=== PATIENT | male | born 1955 | race Two or more races ===

== ENCOUNTER 2024-12-12 02:38 | Observation (INO) | payer MEDICARE, MEDICAID, SELFPAY ==
[2024-12-12] VITALS (13 sets, daily range): BP systolic 116–196; BP diastolic 59–99; PULSE 66–95; RESP 12–95; TEMP 36.8–39.4; O2SAT 87–98
--- NOTE | 2024-12-12 02:41 | XR_ITS ---
Examination: CT cervical spine without contrast 2-D sagittal reconstructions 2-D coronal reconstructions 3-D reconstructions. Exam date and time:2024 1537 hours Patient with injury to the neck, neck pain CTDI:vol (mGy) 17 DLP: (mGycm) 370 Technique: Multiple 2 mm axial sections of the cervical spine have been obtained. The coronal and sagittal reconstructions have been obtained. 3-D reconstructions have been obtained. Low dose protocols were performed. One or more of the following dose reduction techniques were used; automated exposure control, adjustment of the mA and/or KV according to patient size, use of iterative reconstruction technique. Findings: Axial sections demonstrate intact base of the skull. C1 exhibit satisfactory relationship to the odontoid. No acute cervical vertebral body fracture seen. Alignment posterior spinous processes satisfactory. Impression: No acute cervical fracture.
--- NOTE | 2024-12-12 02:41 | XR_ITS ---
Examination: CT brain head without contrast. 2-D sagittal coronal reconstructions Date and time of exam:December 12, 2024 at 0337 hours Comparison May 04, 2009 INDICATIONS: Patient fell and struck the left side of his head 2 days ago had pain CTDI: vol (mGy):60.9 DLP: (mGycm):1170 Technique: Multiple CT axial sections of the brain have been obtained, 5 mm slice thickness. Contrast has not been administered. 2-D sagittal, coronal reconstructions have been obtained Low dose protocols were performed. One or more of the following dose reduction techniques were used; automated exposure control, adjustment of the mA and/or KV according to patient size, use of iterative reconstruction technique. Findings: Posterior parietal craniotomy defect again noted Ventricles are not enlarged No interval hemorrhage or mass effect Tiny old infarcts right and left cerebellar hemispheres No cranial vault fracture. Impression : No interval hemorrhage or mass effect
--- NOTE | 2024-12-12 02:42 | EKG_ITS ---
[facility] Test Date: 2024-12-12 Pat Name: SARATH MORRIS Department: Room: - Gender: Male [employer] Dis[employer]: : 1955 Requested By: Blaine Faye Order Number: [id number] Reading MD: Blaine Faye Measurements Intervals [place] Rate: 89 P: 43 NM: 162 QRS: 139 QRSD: 146 T: 23 QT: 380 QTc: 464 Interpretive Statements SINUS RHYTHM WITH FREQUENT SUPRAVENTRICULAR PREMATURE COMPLEXES RIGHT AXIS DEVIATION [QRS AXIS > 100] RIGHT BUNDLE BRANCH BLOCK [120+ ms QRS DURATION, UPRIGHT V1, 40+ ms S IN I/aVL/V4/V5/V6] Compared to ECG 09/28/2023 07:58:35 Right-axis deviation now present Right bundle-branch block now present /store/S0/[id number]/ecg/[id number].pdf
--- NOTE | 2024-12-12 02:51 | PD.EDFALL ---
ED Fall Injury RME/HPI General Chief Complaint: Fall Stated Complaint: SYNCOPAL EPISODE Time Seen by Provider: 12/12/24 02:41 Arrival date/time: 12/12/24 02:38 RME / HPI RME / HPI Narrative: Dr. Jesus?s Main ED Evaluation: 69yo male with a history of CVA, HTN, PVD BIBA from home presents to the ED for a chief complaint of a fall. Patient states he got up to use the restroom when his legs felt weak and he fell, hitting face first on the floor. Patient denies LOC, but family reported on scene the patient did lose consciousness. Patient denies any chest pain, abdominal pain, extremity pain, headache, neck pain or any other associated symptoms. Denies recent cough, fever, chills, N/V. No known allergies. Related Data Home Medications ?Medication ?Instructions ?Recorded ?Confirmed benazepril 40 mg tablet 40 mg PO DAILY 05/02/23 05/02/23 carvedilol 12.5 mg tablet 12.5 mg PO BID 05/02/23 05/02/23 furosemide 20 mg tablet 20 mg PO DAILY 05/02/23 05/02/23 tamsulosin 0.4 mg capsule 0.4 mg PO DAILY 05/02/23 05/02/23 trazodone 50 mg tablet 50 mg PO HS PRN Sleep 05/02/23 05/02/23 Previous Rx's ?Medication ?Instructions ?Recorded pantoprazole 40 mg tablet,delayed 40 mg PO QDAY #30 tabs 05/04/23 release (Protonix) Allergies Allergy/AdvReac Type Severity Reaction Status Date / Time No Known Allergies Allergy Unknown Unverified 09/28/23 06:58 Review of Systems Review of Systems Systems Reviewed: All systems reviewed, normal except as documented Past Medical History Past Medical History NEUROLOGIC: Positive Transient Ischemic Attacks (TIA) (had a blank stare- resolved); Negative Seizures CARDIAC: Positive Cardiac Disorders, Peripheral Vascular Disease, Edema (legs) and Hypertension; Negative Congestive Heart Failure RESPIRATORY: Negative Chronic Obstructive Pulmonary Disease (COPD) or Asthma GASTROINTESTINAL: Negative Gastrointestinal Disorders, Gastrointestinal Bleed or Ulcer GENITOURINARY: Positive Genitourinary Disorders (prostate problem); Negative Renal Disease ENDOCRINE: Negative Diabetes Mellitus Type 1 or Diabetes Mellitus Type 2 HEMATOLOGIC: Negative Sickle Cell Disease OTHER HISTORY: Negative Falls, Blood Transfusions, Blood Transfusion Reaction or Anesthesia Reactions Social History SMOKING STATUS: Never smoker SECOND HAND EXPOSURE: No SUBSTANCE USE: does not use ED Exam Narrative Physical exam: GENERAL APPEARANCE: alert and oriented x 4, well-developed, well-nourished, no acute distress VITALS: All vitals were reviewed and the pulse ox is % on room air, which is normal according to my interpretation. HEENT: Normocephalic, atraumatic; scar to the crown of the scalp; pupils equal, round, reactive to light; EOMI; mucous membranes pink, moist; oropharynx clear; no valladares sign; no raccoon eyes NECK: Supple LUNGS: CTABL; no wheezes, no rales, no rhonchi HEART: Regular rate, regular rhythm; normal S1, S2; no murmurs ABDOMEN: non distended; normal BS; soft, no tenderness, no guarding, no rebound; no masses, no organomegaly, no hernia BACK: no CVA tenderness EXTREMITIES: atraumatic; no edema; congenitally shortened fingers NEUROLOGIC: awake; alert and oriented x4; cranial nerves II-XII grossly intact; no focal sensory or motor deficits PSYCHIATRIC: appropriate mood and affect SKIN: warm, dry, normal color; large kelloid to just above the middle of the upper sternum, deep abrasion to the left side of the face over the maxilla and zygoma, no rashes Course Course Course Narrative: C-collar placed. CXR is ordered for determining the etiology of fever. 0259: Sepsis alert initiated. Orders made at this time are congruent with ED Adult Sepsis Order List. Re-evaluation is to be completed. 0438: NS IVF infused. 0508: Sepsis reassessment performed consisting of lab review, vitals, physical exam including auscultation of heart, lungs, and visual evaluation of capillary refills, mucosal membranes and extremities. Quality Measures Possible source: unknown Blood cultures ordered: yes Antibiotic ordered: Yes Pertinent labs: 12/12/24 02:53 Lactic Acid 2.8 H mMol/L (0.4-2.0) Procalcitonin 0.32 ng/ml (0.0-0.49) sepsis Orders Category Date Time Status Bedside COVID-19 Antigen Test NOW Care 12/12/24 02:58 Active Bedside Influenza A&B Antigen Test NOW Care 12/12/24 02:[address] Screening NOW Care 12/12/24 04:40 Active [employer] STAT Care 12/12/24 02:42 Active EKG (ED ONLY) *Do not use* NOW Care 12/12/24 02:42 Completed In and Out Catheter X1 Care 12/12/24 02:42 Active Insert IV NOW Care 12/12/24 02:56 Active Insert IV STAT Care 12/12/24 02:42 Active NPO STAT Care 12/12/24 02:56 Active Orthostatic Vitals STAT Care 12/12/24 02:42 Active Strict Intake and Output Routine Care 12/12/24 02:[address] angio chest Stat Exams 12/12/24 04:[address] cervical spine wo con Stat Exams 12/12/24 02:[address] facial bones wo con Stat Exams 12/12/24 02:[address] head/brain wo con Stat Exams 12/12/24 02:41 Taken EKG (ED Only) Stat Exams 12/12/24 02:42 Draft XR chest 1V portable Stat Exams 12/12/24 02:54 Taken B-Type Natriuretic Peptide Stat Lab 12/12/24 02:53 Completed Blood Culture (Lab) Stat Lab 12/12/24 02:53 Received CBC Stat Lab 12/12/24 02:53 Completed Comprehensive Metabolic Panel Stat Lab 12/12/24 02:53 Completed LDH (Lactate Dehydrogenase) Stat Lab 12/12/24 02:53 Completed Lactate (Lactic Acid) Stat Lab 12/12/24 02:53 Results Lipase Stat Lab 12/12/24 02:53 Completed Magnesium Stat Lab 12/12/24 02:53 Completed Partial Thromboplastin Time Stat Lab 12/12/24 02:53 Completed Phosphorous Stat Lab 12/12/24 02:53 Completed Procalcitonin Stat Lab 12/12/24 02:53 Completed Prothrombin Time with INR Stat Lab 12/12/24 02:53 Completed Troponin I Stat Lab 12/12/24 02:53 Completed Urinalysis Stat Lab 12/12/24 04:40 Completed Urine Culture Stat Lab 12/12/24 04:40 Received Acetaminophen Ivpb [Ofirmev Inj] Med 12/12/24 04:38 Discontinued 1,000 mg in 100 ml IV X1 Doxycycline Inj [Vibramycin Inj] 100 mg Med 12/12/24 03:30 Discontinued Sodium Chloride 0.9% (Pop) [NS 0.9% mini bag] 100 ml IV X1 Piper/Tazo Inj [Zosyn Inj] 4.5 gm Med 12/12/24 02:58 Discontinued Sodium Chloride 0.9% (Pop) [NS 0.9% mini bag] 100 ml IV X1 Sodium Chloride 0.9% 1000 ml [Ns] 1,000 ml Med 12/12/24 02:58 Discontinued IV 999 mls/hr Oxygen Delivery NOW RT 12/12/24 02:56 Active Vital Signs Vital signs: Vital Signs Temperature 102.9 F H 12/12/24 02:56 Pulse Rate 95 12/12/24 02:56 Respiratory Rate 18 12/12/24 02:56 Blood Pressure 170/99 H 12/12/24 02:56 Pulse Oximetry (%) 96 12/12/24 02:56 Oxygen Delivery Method Room Air 12/12/24 02:56 Fall MDM Narrative MDM Narrative:: Scribe Attestation: 12/12/24 - Aniya Ferguson am scribing for and in the presence of Dr. Jesus. Patient data External records reviewed:: [facility] previous records (Per chart review, patient was seen here on 09/28/23 for atypical chest pain.) Clinical information provided by:: patient and EMS Social determinants that could affect healthcare access:: none Patient has the following chronic illnesses:: CVA, HTN, PVD How is presenting disease/condition affected by chronic disease/condition?: uneffected by Evaluation data The following diagnostics were reviewed and interpreted by me:: lab results, radiology exam(s) and EKG tracing(s) Lab and/or radiology exams considered but not ordered:: none Interpretation Summary: CBC is normal, PT and INR are normal, Creatinine is 1.7, Lactic Acid is elevated at 2.8, troponin is normal, Procalcitonin is normal, according to my interpretation. CXR is rotated, but shows a right perihilar infiltrate and widened mediastinum, according to my interpretation. EKG done at 0306, NSR, rate of 89, right axis deviation, RBBB, frequent PACs, QTc: 427, QRS, 146, no STEMI, according to my interpretation. Medications / Prescriptions Medications or Prescriptions considered but not ordered:: none Medication administrations:: Medication Administration History Discontinued Medications Piperacillin Sod/Tazobactam (Sod 4.5 gm/ Sodium Chloride) 100 mls @ 200 mls/hr IV X1 ONE Stop: 12/12/24 03:27 Last Infusion: 12/12/24 05:00 Dose: Infused Documented By: Admin: 12/12/24 04:19 Dose: 200 mls/hr Documented By: DUSTIN Doxycycline Hyclate 100 mg/ (Sodium Chloride) 100 mls @ 100 mls/hr IV X1 ONE Stop: 12/12/24 04:29 Last Admin: 12/12/24 05:39 Dose: 100 mls/hr Documented By: ARIANNA Sodium Chloride (Ns) 1,000 mls @ 999 mls/hr IV .Q1H1M ONE Stop: 12/12/24 03:58 Last Infusion: 12/12/24 04:38 Dose: Infused Documented By: Admin: 12/12/24 03:23 Dose: 999 mls/hr Documented By: DUSTIN Acetaminophen (Ofirmev Inj) 1,000 mg in 100 mls @ 250 mls/hr IV X1 ONE Stop: 12/12/24 05:01 Last Infusion: 12/12/24 05:39 Dose: Infused Documented By: Admin: 12/12/24 05:09 Dose: 250 mls/hr Documented By: ARIANNA see above Consultations Consultation(s) initiated? (list below): No Diagnosis Fall Differential Diagnosis: other (ICH, c-spine fx, facial fx, syncope, TIA, AR, sepsis, septic shock) Most likely diagnosis given after review of the tests above:: see clinical impression below Admission Indicated Admission indicated?: not indicated Admission Request Was there a request for admission?: No Disposition Plan Disposition Plan: other (specify) (Signed out to Dr. Taylor at [address] angio chest.) Discharge Plan Prescriptions/Referrals Prescriptions/Med Rec: No Action furosemide 20 mg tablet 20 mg PO DAILY benazepril 40 mg tablet 40 mg PO DAILY trazodone 50 mg tablet 50 mg PO HS PRN (Reason: Sleep) carvedilol 12.5 mg tablet 12.5 mg PO BID Rx Instructions: with food tamsulosin 0.4 mg capsule 0.4 mg PO DAILY pantoprazole [Protonix] 40 mg tablet,delayed release (DR/EC) 40 mg PO QDAY Qty: 30 3RF Referrals: Ranjan Wolfe MD [Primary Care Provider] - In 1 week Problem List Clinical Impression: Acute renal failure, Severe sepsis Patient/Caregiver Discharge Instructions Print Language: Greek
--- NOTE | 2024-12-12 02:53 | XR_ITS ---
Examination: CT maxillofacial, without intravenous contrast. 2-D sagittal reconstructions. 3-D reconstructions. Date and time of exam:December 12, 2024 0337 hours INDICATIONS: Patient fell 2 days ago with injury to the face, facial pain CTDI: vol (mGy):28.9 DLP: (mGycm):549 Technique: Multiple axial images of maxillofacial region, 3.0 mm slice thickness. 2-D sagittal and coronal reconstructions. 3-D reconstructions. Low dose protocols were performed. One or more of the following dose reduction techniques were used; automated exposure control, adjustment of the mA and/or KV according to patient size, use of iterative reconstruction technique. Findings: Frontal bone infarct Orbital rims intact No nasal bone fracture No depression zygomatic arches Pterygoid plates maxilla and the mandible intact IMPRESSION: No acute facial fracture.
--- NOTE | 2024-12-12 02:54 | XR_ITS ---
Examination: AP chest single view Technique one AP portable semiupright chest single view Exam date and time: December 12, 2024 0319 hours Comparison September 28, 2023 INDICATION: Syncopal episode today. FINDINGS: Mild opacity left base No significant cardiac enlargement Ectatic thoracic aorta. No pulmonary edema IMPRESSION: Suspicious for mild left base pneumonia
[2024-12-12 03:02] LABS: Lactate (Lactic Acid) 2.8 mMol/L (0.4-2.0)
[2024-12-12 03:08] LABS: Basophils % (Auto) 0 % (0-2.5); Eosinophils % (Auto) 0 % (0-10); Hematocrit 45.7 % (41.0-53.0); Hemoglobin 15.9 g/dL (13.5-16.0); Immature Granulocytes % (Auto) 1 % (0-0); Immature Granulocytes Auto 0.05 Thou/mm3 (0.00-0.00); Lymphocytes % (Auto) 9 % (10-50); Mean Corpuscular HGB Conc 34.8 g/dl (31.0-37.0); Mean Corpuscular Hemoglobin 29.6 pg (25.0-35.0); Mean Corpuscular Volume 85 fL (80-100); Monocytes # (Auto) 0.9 Thou/mm3 (0.0-0.8); Monocytes % (Auto) 8 % (0-12); Neutrophils # (Auto) 8.6 Thou/mm3 (1.8-7.7); Neutrophils % (Auto) 82 % (37-80); Nucleated Red Blood Cell % 0 /100 WBC (0); Platelet Count 157 Thou/mm3 (140-440); RDW Standard Deviation 41.9 fL (35.1-43.9); Red Blood Count 5.37 Miln/mm3 (4.50-5.90); White Blood Count 10.6 Thou/mm3 (3.8-10.6)
[2024-12-12 03:19] LABS: INR 1.1 (0.9-1.3); Partial Thromboplastin Time 26.1 Seconds (22.0-36.0)
[2024-12-12] MEDS: SODIUM CHLORIDE 0.9% 1000 ML 1,000 ML 999 ML IV (03:23)
[2024-12-12 03:26] LABS: B-Type Natriuretic Peptide 111 pg/mL (0-100)
[2024-12-12 03:36] LABS: Alanine Aminotransferase 17 U/L (10-49); Albumin, Serum 4.1 gm/dL (3.4-4.8); Albumin/Globulin Ratio 1.3 (1.2-2.2); Alkaline Phosphatase 88 U/L (46-116); Anion Gap 6 (7-16); Aspartate Amino Transferase 24 U/L (0-34); BUN/Creatinine Ratio 11 Ratio (12-20); Bilirubin,Total 0.8 mg/dL (0.3-1.2); Blood Urea Nitrogen 18 mg/dL (9-23); Calcium 8.7 mg/dL (8.3-10.6); Calcium (Corrected) 8.7 mg/dL (8.5-10.1); Carbon Dioxide 27.9 mMol/L (20.0-31.0); Chloride 102 mMol/L (98-107); Creatinine (Component) 1.7 mg/dL (0.6-1.3); Globulin 3.1 gm/dL (2.3-3.5); Glucose 183 mg/dL (74-106); LDH (Lactate Dehydrogenase) 254 U/L (120-246); Lipase 43 U/L (12-53); Magnesium 1.7 mg/dL (1.6-2.6); Osmolality,Calculated 278 (275-295); Phosphorous 1.9 mg/dL (2.4-5.1); Potassium 4.2 mMol/L (3.4-5.1); Procalcitonin 0.32 ng/ml (0.0-0.49); Sodium 136 mMol/L (136-145); Total Protein 7.2 gm/dL (5.7-8.2); Troponin I < 0.020 ng/mL (0.0-0.045); eGFR 43 See Note
[2024-12-12] MEDS: PIPER/TAZO INJ 4.5 GM in SODIUM CHLORIDE 0.9% (POP) 100 ML IV (04:19)
--- NOTE | 2024-12-12 04:29 | PRELIM_ITS ---
CT scan of the head without intravenous contrast (axial sections with sagittal and coronal reformats) December 12, 2024 at 0337 hours Clinical History: Head injury. Comparison: None. Findings: There is no evidence of intracranial hemorrhage, mass effect or midline shift. There are periventricular white matter hypodensities, compatible with chronic small vessel ischemia. There is moderate volume loss. No acute fractures. The mastoid air cells and the visualized paranasal sinuses are clear. Impression: No evidence of intracranial hemorrhage, midline shift or calvarial fracture. Periventricular chronic small vessel ischemia and volume loss. Report Electronically Signed By: Sb Gunn 12/12/2024 4:29:18 AM [EST]
--- NOTE | 2024-12-12 04:29 | PRELIM_ITS ---
CT maxillofacial without intravenous contrast (axial sections with sagittal and coronal reformats). December 12, 2024 at 0337 hours Clinical History: Fall, trauma to left face. Comparison: None. Findings: There is no fracture. The maxillary sinus and orbital wooten are intact. No fluid levels are seen. No evidence of intraorbital hematoma, proptosis, globe injury or radiodense foreign body. The zygomatic arches and mandible are intact. The visualized soft tissues are unremarkable. Impression: No maxillofacial fracture. Report Electronically Signed By: Sb Gunn 12/12/2024 4:28:40 AM [EST]
--- NOTE | 2024-12-12 04:30 | PRELIM_ITS ---
CT scan of the cervical spine without intravenous contrast (axial sections with sagittal and coronal reformats) December 12, 2024 at 0337 hours Clinical History: Head injury. Comparison: None. Findings: There is no fracture or subluxation. The prevertebral soft tissues are unremarkable. Impression: No evidence of fracture or subluxation. Report Electronically Signed By: Sb Gnun 12/12/2024 4:29:38 AM [EST]
--- NOTE | 2024-12-12 04:40 | XR_ITS ---
Examination: CTA chest with intravenous contrast 2-D reconstructions 3-D reconstructions, vascular Date and time of exam: December 12, 2024 0825 hours INDICATIONS: Chest pain shortness of breath today widened mediastinum on chest x-ray CTDI: vol (mGy) 24.7 DLP: (mGycm) 486 Technique: Multiple axial sections of the thorax have been obtained. 3 mm slice thickness, from below the hemidiaphragms to above the apices of the lungs. Mediastinal and lung density settings have been obtained. 2-D sagittal and coronal reconstructions. 3-D angiographic renderings, 3-D volume renderings, 3D post processing, vascular maximum intensity projections obtained. Contrast administered is 60 cc Isovue-300. Low dose protocols were performed. One or more of the following dose reduction techniques were used; automated exposure control, adjustment of the mA and/or KV according to patient size, use of iterative reconstruction technique. Findings: No thoracic aortic aneurysmal dilatation Thoracic aortic opacity is reduced No dissection is noted Pulmonary artery segments are not enlarged No pulmonary artery filling defects No pneumonia or pulmonary edema Bleb in the left upper lobe, 39 mm and bleb in the right lower lobe 13 mm No pneumonia or pulmonary edema No visualized liver or splenic lesion Cholelithiasis gallbladder wall does not appear thickened Significant scarring both kidneys IMPRESSION: No thoracic aortic aneurysmal dilatation Pulmonary artery segments are not enlarged Negative for pulmonary artery emboli
[2024-12-12 04:48] LABS: Collection Type, Urine Catheter; Squamous Epithelial Cell,Urine 0 /hpf (0-5); WBC,Urine 0 /hpf (0-5)
[2024-12-12 04:57] LABS: Bacteria,Urine Rare; Bilirubin,Urine Negative (Negative); Blood,Urine 2+ (Negative); Clarity,Urine Clear (Clear/Hazy); Color,Urine Lt-Yellow (Lt Yel-Yel); Glucose, Urine Negative (Negative); Ketones,Urine Negative (Negative); Leukocyte Esterase,Urine Negative (Negative); Nitrite,Urine Negative (Negative); PH,Urine 6.5 (5.0-7.0); Protein,Urine Trace (Neg - Trace); RBC,Urine 31 /hpf (0-3); Urobilinogen,Urine Negative mg/dL (0.0-1.0)
[2024-12-12] MEDS: ACETAMINOPHEN IVPB 1,000 MG/100 ML VIAL 250 MG IV (05:09)
[2024-12-12] MEDS: DOXYCYCLINE INJ 100 MG in SODIUM CHLORIDE 0.9% (POP) 100 ML IV (05:39)
[2024-12-12 05:59] LABS: Reflex Lactate? Y
--- NOTE | 2024-12-12 06:07 | PD.EDADDENDU ---
Emergency Room Addendum Addendum Narrative: 0600: Care assumed from Dr. Jesus (emergency physician). Past medical, surgical, social and family history reviewed. Vitals and home medications reviewed. Results and treatment plan discussed. I will assume the care of the patient at this time and will follow the patient, pending CTA of chest.
[2024-12-12 06:42] LABS: Lactic Acid, 3 HR 1.3 mMol/L (0.4-2.0)
--- NOTE | 2024-12-12 08:32 | EDNOTE_ITS ---
Emergency Room Addendum Addendum Narrative: 0600: Care assumed from Dr. Jesus (emergency physician). Past medical, surgical, social and family history reviewed. Vitals and home medications reviewed. Results and treatment plan discussed. I will assume the care of the patient at this time and will follow the patient, pending CTA of chest. 906: Patient: SARATH MORRIS. Record#: [id number] Birthdate: 1955 Age/Sex: 69 / M Location: [facility] Attending Dr: Ordering Physician: Blaine Jesus MD Date of Service: 12/12/24 Procedure(s): CT angio chest Accession Number(s): [id number] cc: Ranjan Wolfe MD; Reji Cespedes MD; Blaine Jesus MD~ Examination: CTA chest with intravenous contrast 2-D reconstructions 3-D reconstructions, vascular Date and time of exam: December 12, 2024 0825 hours INDICATIONS: Chest pain shortness of breath today widened mediastinum on chest x-ray CTDI: vol (mGy) 24.7 DLP: (mGycm) 486 Technique: Multiple axial sections of the thorax have been obtained. 3 mm slice thickness, from below the hemidiaphragms to above the apices of the lungs. Mediastinal and lung density settings have been obtained. 2-D sagittal and coronal reconstructions. 3-D angiographic renderings, 3-D volume renderings, 3D post processing, vascular maximum intensity projections obtained. Contrast administered is 60 cc Isovue-300. Low dose protocols were performed. One or more of the following dose reduction techniques were used; automated exposure control, adjustment of the mA and/or KV according to patient size, use of iterative reconstruction technique. Findings: No thoracic aortic aneurysmal dilatation Thoracic aortic opacity is reduced No dissection is noted Pulmonary artery segments are not enlarged No pulmonary artery filling defects No pneumonia or pulmonary edema Bleb in the left upper lobe, 39 mm and bleb in the right lower lobe 13 mm No pneumonia or pulmonary edema No visualized liver or splenic lesion Cholelithiasis gallbladder wall does not appear thickened Significant scarring both kidneys IMPRESSION: No thoracic aortic aneurysmal dilatation Pulmonary artery segments are not enlarged Negative for pulmonary artery emboli Dictated By: Reji Cespedes MD Signed By: <Electronically signed by Reji Cespedes MD in [place]> 12/12/24 0940 1871: Spoke to Dr. Quinteros, the Hospitalist, patient will be admitted. 1035:
--- NOTE | 2024-12-12 11:23 | XR_ITS ---
Examination: CT abdomen and pelvis without contrast. Coronal 3-D reconstructions. Sagittal 2-D reconstructions. Date and time of exam:December 12, 2024 1142 hours Comparison May 01, 2023 INDICATIONS: Generalized abdominal pain today CTDI: vol (mGy): 13.4 DLP: (mGycm): 1005 Technique: Axial images of the abdomen have been obtained, 3 mm slice thickness Intravenous contrast material has not been administered. Low dose protocols were performed. One or more of the following dose reduction techniques were used; automated exposure control, adjustment of the mA and/or KV according to patient size, use of iterative reconstruction technique. Findings: Fatty infiltration throughout the liver Gallstones Gallbladder wall does not appear thickened Spleen is not enlarged No pancreatic or adrenal mass Moderate bilateral renal parenchymal scar formation with renal cortical thinning No hydronephrosis Aorta normal size Normal appendix 26 mm fat-containing umbilical hernia Colonic diverticulosis No bladder mass. Normal seminal vesicles Transverse prostate dimension 5.1 cm Advanced disc narrowing L5-S1 IMPRESSION: Cholelithiasis Moderate bilateral renal parenchymal scar formation Bilateral renal cortical thinning No renal or ureteral calculi, no hydronephrosis Normal appendix. 26 mm fat-containing umbilical hernia. Colonic diverticulosis, no diverticulitis Moderate prostatomegaly Advanced degenerative disc disease L5-S1
--- NOTE | 2024-12-12 11:24 | XR_ITS ---
Examination: Knee, left , 3 views Technique: Knee AP, lateral, oblique 3 views Date and time of exam: December 12, 2024 1149 hours INDICATIONS: Patient fell yesterday with injury to the knee, knee pain. FINDINGS: Severe osteopenia Mild depression lateral tibial plateau Advanced tricompartment osteoarthritis IMPRESSION: Recommend CT scan knee without contrast follow-up to exclude subtle fracture lateral tibial plateau
--- NOTE | 2024-12-12 11:54 | ESHP_ITS ---
<Statement entered by Dorian Eckert MD - 12/13/24 09:10> Senior Resident Attestation: I supervised/discussed management plan with brand marketing intern physician Dr. Quinteros, and was involved in the care of this patient. I personally saw and examined the patient and discussed the assessment and plan with the entire medicine team, including my attending. I agree with the assessment and plan as documented. Patient's care was discussed with attending physician, Dr. Zamora. Dorian Eckert MD PGY-2. Documentation for date of: 12/12/24 HPI History of Present Illness Chief complaint: Ground level fall History of present illness: A 69-year-old male with significant past medical history of hypertension, CVA, left eye blindness, BPH, colon cancer s/p resection, bilateral osteoarthritis of knee, chronic venous stasis presented to the hospital with chief complaints of ground-level fall this morning. At baseline, patient was mostly bedridden but able to ambulate with the help of a walker because of severe osteoarthritis of left knee. This morning patient tried to ambulate during which he felt buckling of knee and fell on his both knees following which he hit his head to the ground on face. Denies palpitations, shortness of breath, loss of consciousness, involuntary movements. Denies any other complaints. Later he was brought to the hospital in view of abrasion on the left knee ED Course: -Initial vitals were blood pressure 170/99 mmHg, pulse rate 95 bpm, respiratory rate 18/min, temperature 102.9 ?F, SpO2 96% with room air -Labs significant for WBC 10.6, Hb 15.9, platelet 157, sodium 136, potassium 4.2, creatinine 1.7, glucose 183, phosphorus 1.9, procalcitonin 0.32, lactate 2.8 -In the ED, patient was given acetaminophen, 1 L IV fluid -Patient was admitted for further observation in view of febrile episode in the hospital with elevated lactate level Past medical history: Hypertension, BPH, colon cancer, osteoarthritis of knee, chronic venous stasis with dermatitis, CVA, left eye blindness Past surgical history: Right knee replacement, colon cancer s/p resection Social history patient stopped drinking alcohol and smoking 30 years ago, which 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 Lives with his family with and daughter at home Allergies: NKDA Review of Systems Review of Systems Systems Reviewed: All systems reviewed, normal except as documented Past Medical History Past Medical History NEUROLOGIC: Positive Transient Ischemic Attacks (TIA) (had a blank stare- resolved); Negative Seizures CARDIAC: Positive Cardiac Disorders, Peripheral Vascular Disease, Edema (legs) and Hypertension; Negative Congestive Heart Failure RESPIRATORY: Negative Chronic Obstructive Pulmonary Disease (COPD) or Asthma GASTROINTESTINAL: Negative Gastrointestinal Disorders, Gastrointestinal Bleed or Ulcer GENITOURINARY: Positive Genitourinary Disorders (prostate problem); Negative Renal Disease ENDOCRINE: Negative Diabetes Mellitus Type 1 or Diabetes Mellitus Type 2 HEMATOLOGIC: Negative Sickle Cell Disease OTHER HISTORY: Negative Falls, Blood Transfusions, Blood Transfusion Reaction or Anesthesia Reactions Social History SMOKING STATUS: Never smoker SECOND HAND EXPOSURE: No SUBSTANCE USE: does not use Exam Vital Signs Temp Pulse Resp BP Pulse Ox O2 Del Method 98.3 F 66 12 126/60 95 Room Air 12/12/24 10:52 12/12/24 10:52 12/12/24 10:52 12/12/24 10:52 12/12/24 10:52 12/12/24 10:52 Narrative Exam General: Awake. Resting comfortably on the bed HEENT: Normocephalic, atraumatic, mucous membranes moist. Heart: Regular rate and rhythm, no murmurs. Lungs: Clear to auscultation with no wheezing or crackles. Abdomen: Soft, mildly distended, nontender, positive bowel sounds. ?No guarding or rebound tenderness. Neurologic: Alert and oriented x3, no gross neurological deficit, and patient able to move all 4 extremities. Extremities: Bilateral chronic peripheral venous stasis changes are noted with dermatitis, erythema, scaling. Small abrasion of 1 x 1 cm noted on left knee Skin: Small abrasion of 1 x 1 cm noted on left knee Results: Labs 12/13/24 04:30 12/13/24 04:30 Labs: Short CBC 12/12/24 Range/Units 02:53 WBC 10.6 (3.8-10.6) Thou/mm3 Hgb 15.9 (13.5-16.0) g/dL Hct 45.7 (41.0-53.0) % Plt Count 157 (140-440) Thou/mm3 BMP 12/12/24 02:53 Sodium 136 Potassium 4.2 Chloride 102 Carbon Dioxide 27.9 BUN 18 Creatinine 1.7 H Glucose 183 H Calcium 8.7 Cardiac Enzymes 12/12/24 Range/Units 02:53 Troponin I < 0.020 (0.0-0.045) ng/mL Liver Function 12/12/24 Range/Units 02:53 Total Bilirubin 0.8 (0.3-1.2) mg/dL AST 24 (0-34) U/L ALT 17 (10-49) U/L Alkaline Phosphatase 88 (46-116) U/L Albumin 4.1 (3.4-4.8) gm/dL Urine 12/12/24 Range/Units 04:40 Urine Color Lt-Yellow (Lt Yel-Yel) Urine Clarity Clear (Clear/Hazy) Urine pH 6.5 (5.0-7.0) Ur Specific Lilly 1.020 (1.001-1.035) Urine Protein Trace (Neg - Trace) Urine Glucose (UA) Negative (Negative) Quality Measures Quality Measures sepsis Current suspected stage: ruled out Possible source: unknown Blood cultures ordered: yes Antibiotic ordered: No Advance care planning discussed with:: patient Medications Home Medications and Allergies Home Medications ?Medication ?Instructions ?Recorded ?Confirmed ?Type benazepril 40 mg tablet 40 mg PO DAILY 05/02/2312/03 History carvedilol 12.5 mg tablet 12.5 mg PO BID 05/02/2312/03 History tamsulosin 0.4 mg capsule 0.4 mg PO DAILY 05/02/2312/03 History trazodone 50 mg tablet 50 mg PO HS PRN Sleep 12/12/24 History Allergies Allergy/AdvReac Type Severity Reaction Status Date / Time No Known Allergies Allergy Unknown Unverified 09/28/23 06:58 Visit Medications Acetaminophen (Acetaminophen 325 Mg Tablet) 650 mg PO Q6H PRN PRN Reason: Fever >101.5 Stop: 01/11/25 11:19 Bisacodyl (Bisacodyl 5 Mg Tabec) 10 mg PO QDAY PRN; Protocol PRN Reason: CONSTIPATION Stop: 01/11/25 11:19 Enoxaparin Sodium (Enoxaparin Sod Inj 40 Mg/0.4 Ml Syringe) 40 mg SC QDAY EVGENY Stop: 12/27/24 08:59 Ondansetron HCl (Ondansetron Inj 2 Mg/Ml Inj 2 Ml) 4 mg IV Q6H PRN; Protocol PRN Reason: NAUSEA OR VOMITING Stop: 01/11/25 11:19 Discontinued Medications Piperacillin Sod/Tazobactam (Sod 4.5 gm/ Sodium Chloride) 100 mls @ 200 mls/hr IV X1 ONE Stop: 12/12/24 03:27 Last Infusion: 12/12/24 05:00 Dose: Infused Doxycycline Hyclate 100 mg/ (Sodium Chloride) 100 mls @ 100 mls/hr IV X1 ONE Stop: 12/12/24 04:29 Last Infusion: 12/12/24 07:30 Dose: Infused Sodium Chloride (Ns) 1,000 mls @ 999 mls/hr IV .Q1H1M ONE Stop: 12/12/24 03:58 Last Infusion: 12/12/24 04:38 Dose: Infused Acetaminophen (Ofirmev Inj) 1,000 mg in 100 mls @ 250 mls/hr IV X1 ONE Stop: 12/12/24 05:01 Last Infusion: 12/12/24 05:39 Dose: Infused Assessment & Plan Plan A 69-year-old male with significant past medical history of hypertension, CVA, left eye blindness, BPH, colon cancer s/p resection, bilateral osteoarthritis of knee, chronic venous stasis presented to the hospital with chief complaints of ground-level fall and admitted for observation as patient developed a febrile episode in the hospital # Ground-level fall # Abrasion on left knee #Bilateral osteoarthritis of knee, s/p right TKR # Fever -Presented to the hospital with complaints of ground-level fall secondary to buckling of the knee -Denies any other associated symptoms like shortness of breath, palpitations, syncopal episodes, involuntary movements -Vitals are stable at the time of admission. On physical examination, severe arthritis and abrasion is noted on left knee -Patient found to have a temperature of 102.9 ?F which immediately resolved later within 30 minutes of acetaminophen infusion, less likely infection etiology as patient does not have any source of infection -Labs showed WBC 10.6, Hb 15.9, lactate 2.8, procalcitonin 0.32 -Head CT, cervical spine CT, face CT did not show any evidence of acute fractures -Chest CTA is negative for embolism and infiltrates -Abdomen/pelvis CT showed moderate prostatomegaly, diverticulosis, cholelithiasis, moderate bilateral renal parenchymal scarring Plan -Admitted for observation in view of febrile episode -No antibiotics for now in view of less suspicion of infection based on clinical condition and lab work -Referred to PT -Patient is pending left knee replacement, unsure of the date on outpatient basis # Lactic acidosis, resolved Likely due to mild dehydration as patient had poor oral intake, per daughter Lactate at the time of admission is 2.8, repeat lactate after IV fluid of 1 L is 1.3 # HODAN versus CKD -Creatinine at the time of admission is 1.7 -Baseline creatinine in 2023 is 1.2 -CT abdomen/pelvis showed mild bilateral renal parenchymal scarring with moderate prostatomegaly but without any hydronephrosis -Urine analysis showed 2+ blood -Patient received 1 L fluid in the ED Plan -Repeat renal functions tomorrow -Avoid nephrotoxic medications and renally dose medications # History of hypertension -Blood pressure at the time of admission is 170/99 -Patient is using benazepril and carvedilol at home -Will resume his home medications # History of CVA # Left eye blindness -Patient initially used aspirin but later it was held at the time of surgery, unsure of stopping that -Explained to the patient and his daughter at the bedside about resuming Eliquis on outpatient basis and contacting their PCP # History of BPH -Patient is using tamsulosin -Will resume it # History of colon cancer s/p resection -Patient underwent colon cancer surgery almost 3 to 4 years back -Did not receive any postop chemo or radiation -Per patient's daughter patient is in remission as of now Hospital Maintenance: Dispo: medsurg DVT ppx: lovenox GI ppx: not needed Diet: Regular IV lines: peripheral Code status: Full Patient plan of care was discussed with the attending physician, Dr. Zamora and senior resident Dr. Tomeka Quinteros, PGY1 Attending Provider Attestation/Addendum Face to face evaluation was performed by me. I have personally seen and examined the patient. I discussed the assessment and plan with the entire medicine team. I reviewed available medical records, imaging studies, laboratory results. I agree with the above subjective data, objective findings, assessment and plan except as corrected by me or noted below # Ground-level fall # Abrasion on left knee #Bilateral osteoarthritis of knee, s/p right TKA # Fever of unknown origin - had singe of episode of elevated temp- could be hyperthermia not true fever rule out infectious etiology obtain CT abd Obtain L Knee Xray PT More than > 30 minutes spent on the encounter
[2024-12-12] MEDS: ACETAMINOPHEN 325 MG TABLET 650 MG PO (18:28)
[2024-12-13 04:00] VITALS: BP 153/93; PULSE 75; RESP 16; TEMP 36.5; O2SAT 94
[2024-12-13 05:36] LABS: Basophils % (Auto) 0 % (0-2.5); Eosinophils # (Auto) 0.1 Thou/mm3 (0.0-0.5); Eosinophils % (Auto) 2 % (0-10); Hematocrit 41.6 % (41.0-53.0); Hemoglobin 14.5 g/dL (13.5-16.0); Immature Granulocytes % (Auto) 1 % (0-0); Immature Granulocytes Auto 0.03 Thou/mm3 (0.00-0.00); Lymphocytes # (Auto) 1.3 Thou/mm3 (1.0-4.8); Lymphocytes % (Auto) 21 % (10-50); Mean Corpuscular HGB Conc 34.9 g/dl (31.0-37.0); Mean Corpuscular Hemoglobin 29.8 pg (25.0-35.0); Mean Corpuscular Volume 85 fL (80-100); Monocytes # (Auto) 0.9 Thou/mm3 (0.0-0.8); Monocytes % (Auto) 15 % (0-12); Neutrophils # (Auto) 3.6 Thou/mm3 (1.8-7.7); Neutrophils % (Auto) 60 % (37-80); Nucleated Red Blood Cell % 0 /100 WBC (0); Platelet Count 137 Thou/mm3 (140-440); RDW Standard Deviation 42.6 fL (35.1-43.9); Red Blood Count 4.87 Miln/mm3 (4.50-5.90)
[2024-12-13 06:10] LABS: Anion Gap 8 (7-16); BUN/Creatinine Ratio 13 Ratio (12-20); Blood Urea Nitrogen 16 mg/dL (9-23); Calcium 8.1 mg/dL (8.3-10.6); Carbon Dioxide 28.3 mMol/L (20.0-31.0); Chloride 103 mMol/L (98-107); Cholesterol 186 mg/dL (132-200); Creatinine (Component) 1.2 mg/dL (0.6-1.3); Glucose 121 mg/dL (74-106); HDL Cholesterol 31 mg/dL (40-60); LDL Cholesterol,Calculated 131 mg/dL (0-130); Osmolality,Calculated 279 (275-295); Phosphorous 3.1 mg/dL (2.4-5.1); Potassium 4.2 mMol/L (3.4-5.1); Sodium 139 mMol/L (136-145); Thyroid Stimulating Hormone 3.64 uIU/mL (0.55-4.78); Triglycerides 119 mg/dL (30-150); eGFR > 60 See Note
[2024-12-13 07:49] VITALS: BP 164/104; PULSE 78; RESP 17; TEMP 37.1; O2SAT 98
[2024-12-13 08:06] VITALS: BP 164/104; PULSE 78
[2024-12-13] MEDS: Lisinopril 2.5 MG TABLET 10 MG PO (08:06)
[2024-12-13] MEDS: ENOXAPARIN SOD INJ 40 MG/0.4 ML SYRINGE SC (08:07)
[2024-12-13] MEDS: ACETAMINOPHEN 325 MG TABLET 650 MG PO (08:20)
--- NOTE | 2024-12-13 10:08 | PC.SS ---
Patient Ramon Ross 69 Year old male admitted for Knee Trauma. SS met with patient at bedside patient reports he lives at home with his daughter, Svitlana Ross [phone]. Patient reports his daughter, Svitlana Franklin is surrogate decision maker [phone]. Patient reports prior to admission he was utilizing a FWW to assist with ambulation, patient is able to complete ADL's independently with minimal assistance. Patient's ex- Paty is patient's [facility] provider. Patient's PCP is Ranjan Wolfe. Choice of pharmacy is [facility]. Patient does not have a preference is agency. At time of discharge patient will return home. Family will provide transportation. Next of Kin: Daughter, Svitlana Ross Discharge Plan: Home with
[2024-12-13 10:20] VITALS: BP 154/91; PULSE 75
[2024-12-13] MEDS: carVEDILOL 12.5 MG TABLET PO (10:20)
--- NOTE | 2024-12-13 10:23 | PC.CM ---
As per SS patient does not have a preference for a home health agency.
--- NOTE | 2024-12-13 10:44 | XR_ITS ---
Examination: Venous duplex lower extremity sonogram, bilateral. Date and time of exam: December 13, 2024 1132 hours INDICATIONS: Leg pain and swelling beginning 3 days ago after falling Technique: Multiple sonographic images of the deep venous system have been obtained. B-mode/2-D grayscale imaging of vascular structures and Doppler spectral analysis (waveforms) and color performed Both legs are examined. Findings: Deep venous systems do not demonstrate abnormal echogenicity. All visualized deep veins exhibit compressibility. All visualized deep veins exhibit augmentation. Impression: Negative for deep vein thrombosis
[2024-12-13 11:49] VITALS: BP 133/88; PULSE 61; RESP 16; TEMP 36.4; O2SAT 95
--- NOTE | 2024-12-13 13:51 | PC.SS ---
SS follow up note; SS will discharge today.
--- NOTE | 2024-12-13 14:37 | ESDS_ITS ---
Planned Discharge Date 12/13/24 DS: Providers Provider Date of admission: 12/12/24 11:20 Primary care physician: Ranjan Wolfe MD Admitting Provider: Holland Zamora MD Attending Provider on Admission: Holland Zamora MD Consults: 12/12/24 15:24 Referral Lynn Routine Comment: Referral Physical Therapy Routine Comment: Physician Instructions: 12/12/24 15:47 Referral Physical Therapy Stat Comment: Physician Instructions: Attending Provider on DC: Eddie Quinteros MD Discharging Provider: Eddie Quinteros MD DS: Diagnosis Problem List Completed Was Problem List Reviewed/Reconciled?: Yes Hospital Course Hospital Course Hospital course: A 69-year-old male with significant past medical history of hypertension, CVA, left eye blindness, BPH, colon cancer s/p resection, bilateral osteoarthritis of knee, chronic venous stasis presented to the hospital with chief complaints of ground-level fall and fell on his knees with abrasion on the left knee. Vitals are stable at the time of admission except for Temp >102.9 F and BP 170/99 mm Hg. Labs significant for WBC 10.6, Hb 15.9, platelet 157, sodium 136, potassium 4.2, creatinine 1.7, glucose 183, phosphorus 1.9, procalcitonin 0.32, lactate 2.8. In the ED, patient was given acetaminophen, [address] Head CT, cervical spine CT, face CT did not show any evidence of acute fractures. Chest CTA is negative for embolism and infiltrates. Abdomen/pelvis CT showed moderate prostatomegaly, diverticulosis, cholelithiasis, moderate bilateral renal parenchymal scarring. And later the kidney functions mproved to his baseline to 1.2 # Ground-level fall # Abrasion on left knee #Bilateral osteoarthritis of knee, s/p right TKR # Fever # Lactic acidosis, resolved # HODAN # History of hypertension # History of CVA # Left eye blindness # History of BPH # History of colon cancer s/p resection Patient plan of care was discussed with the attending physician, Dr. Zamora and senior resident Dr. Tomeka Quinteros, PGY1 Time Spent with Patient Time attestation: Total time spent providing and/or coordinating discharge services: Time spent: Greater than 30 minutes Home Health Home Health Referral Orders: 12/13/24 10:05 Home Health Referral Routine Reason For Exam: PT, nursing Home-Bound The patient must either because of illness or injury, need the aid of supportive devices such as crutches, canes, wheelchairs, and walkers; the use of special transportation; or the assistance of another person in order to leave their place of residence; OR have a condition such that leaving his or her home is medically contraindicated. In addition, the patient also meets the following criteria: patient is normally unable to leave the home and leaving home requires considerable taxing effort. Addendum to Home Health Certification Practitioner's Certification: I certify that the patient has been under my care in the hospital and the care of attending physician (see below). We had a [id number]-[id number] encounter on (see date below). My clinical findings indicate that the patient is home bound per the above criteria and the Home Health Services noted in these orders are medically necessary. The primary reason for the [id number] encounter is related to the fact that the patient requires home health services. Date Certifying Lxtf-ia-Hhot Physician Encounter: 12/12/24 Physician's Name who will Assume Oversight for Services: Ranjan Wolfe Physician's Phone No.who will Assume Oversight for Service: MANAGER APPLICATION - Community Resources: No PT to Evaluate: Yes PT to evaluate and provide a treatmnet plan to increase patient's mobility and strength. Wound Care: No IV Therapy: No RN Safety Evaluation: Yes RN to evaluate and create a plan of care that will produce positive outcomes. Palliative Treatment: No Palliative treatment and evaluate the need for hospice. Home Health Aide - Personal Care: No Home Health Aide to assist with any ADL's. Exam Vital Signs Temp Pulse Resp BP Pulse Ox O2 Del Method 97.6 F 61 16 133/88 H 95 Room Air 12/13/24 11:49 12/13/24 11:49 12/13/24 11:49 12/13/24 11:49 12/13/24 11:49 12/13/24 11:49 Narrative Exam General: Awake. Resting comfortably on the bed HEENT: Normocephalic, atraumatic, mucous membranes moist. Heart: Regular rate and rhythm, no murmurs. Lungs: Clear to auscultation with no wheezing or crackles. Abdomen: Soft, mildly distended, nontender, positive bowel sounds. ?No guarding or rebound tenderness. Neurologic: Alert and oriented x3, no gross neurological deficit, and patient able to move all 4 extremities. Extremities: Bilateral chronic peripheral venous stasis changes are noted with dermatitis, erythema, scaling. Small abrasion of 1 x 1 cm noted on left knee. Congenital defects noted in both upper extremities and Head Skin: Small abrasion of 1 x 1 cm noted on left knee Discharge Plan Plan Patient Disposition: Home w/HOME HEALTH Patient condition on transfer: Stable Care Plan Goals: -Follow-up with primary care provider within 1 week of discharge. If you do not have appointment, [facility]os. Call [phone] to make an appointment. -Continue all of your home medication -Follow-up with photo print specialist for left knee trauma -Return to ED if symptoms persist or return Prescriptions/Referrals Prescriptions/Med Rec: Continued benazepril 40 mg tablet 40 mg PO DAILY trazodone 50 mg tablet 50 mg PO HS PRN (Reason: Sleep) carvedilol 12.5 mg tablet 12.5 mg PO BID Rx Instructions: with food tamsulosin 0.4 mg capsule 0.4 mg PO DAILY pantoprazole [Protonix] 40 mg tablet,delayed release (DR/EC) 40 mg PO QDAY Qty: 30 3RF Referrals: Ranjan Wolfe MD [Primary Care Provider] - Patient/Caregiver Discharge Instructions Education Materials: Dizziness Balance Probs Fainting, Dizziness Fainting Poss Causes Print Language: Lithuanian Stand Alone Forms: [employer] Award Info., Patient Portal Info Letter Discharge Order Discharge Orders: Discharge (Routine); Ordered 12/13/24 Ordered By: Eddie Quinteros Quality Discharge Quality Measures VTE prophylaxis Attestestation Attestation Face to face evaluation was performed by me. I have personally seen and examined the patient. I discussed the assessment and plan with the entire medicine team. I reviewed available medical records, imaging studies, laboratory results. I agree with the above subjective data, objective findings, assessment and plan except as corrected by me or noted below # Ground-level fall # Abrasion on left knee #Bilateral osteoarthritis of knee, s/p right TKA # Fever of unknown origin - No more febrile episodes, does not look infectious etiology. No antibiotics patient was to go home physical therapy was consulted he does not want to go long term facility. Patient follow-up with PCP after discharge. More than > 30 minutes spent on the encounter
--- NOTE | 2024-12-13 19:12 | PC.CM ---
Addendum entered by Bo Ferris RN 12/14/24 12:05: Patient referred to [facility] ALTAMIR[facility], start of care 12/16/24. Original Note: Patient did not have a preference on a home health agency so I sent to all agencies.
== END 2024-12-13 14:28 | disposition home health service (06) ==
LOC: SERX 03:20 → SERHOLD 13:42 → S3NX 14:14
PROVIDERS: Admitting Provider Internal Medicine; Emergency Provider Emergency Medicine; PCP Family Medicine; Visit Provider Internal Medicine
DX: N17.9 Acute kidney failure, unspecified (principal); E87.20 Acidosis, unspecified; H54.62 Unqualified visual loss, left eye, normal vision right eye; I10 Essential (primary) hypertension; I45.10 Unspecified right bundle-branch block; K80.20 Calculus of gallbladder without cholecystitis without obstruction; M17.0 Bilateral primary osteoarthritis of knee; N40.0 Benign prostatic hyperplasia without lower urinary tract symptoms; S80.212A Abrasion, left knee, initial encounter; W18.39XA Other fall on same level, initial encounter; Z85.038 Personal history of other malignant neoplasm of large intestine; Z96.651 Presence of right artificial knee joint; Z86.73 Personal history of transient ischemic attack (TIA), and cerebral infarction without residual deficits; Z01.810 Encounter for preprocedural cardiovascular examination
CPT/HCPCS: 36415; 70450; 70486; 71045; 71275; 72125; 73562; 74176; 80048; 80053; 80061; 81001; 83605; 83615; 83690; 83735; 83880; 84100; 84145; 84443; 84484; 85025; 85610; 85730; 87040; 87086; 87400; 87811; 93005; 93970; 96361; 96365; 96366; 96372; 97162; 99285; A4649; G0378; J0131; J1650; J2543; J3490; J7030; Q9967; A9270

== ENCOUNTER 2025-02-14 13:27 | Outpatient (AMB) | payer MEDICARE, MEDICAID, SELFPAY ==
[2025-02-14 13:44] VITALS: BP 163/86; PULSE 50; RESP 18; TEMP 36.7; O2SAT 92; BMI 35.7
--- NOTE | 2025-02-14 13:44 | XR_ITS ---
Examination: Bilateral AP knees 2 views Standing right lateral knee left lateral knee 2 views Bilateral axial knees single view TECHNIQUE: Bilateral AP knees standing single view, bilateral PA knees standing single view flexion Standing right lateral knee left lateral knee 2 views Bilateral axial knees single view total 5 views Date and time: February 14, 2025 1357 hours INDICATIONS: Bilateral knee pain 3 years right knee replacement 3 years ago. FINDINGS: Moderate osteopenia Total right knee arthroplasty. Satisfactory alignment No loosening of the prosthetic components Advanced left knee tricompartment osteoarthritis, severe narrowing medial joint space No fracture IMPRESSION: Advanced left knee tricompartment osteoarthritis
--- NOTE | 2025-02-14 13:44 | PD.ORTHCLVIS ---
Vital signs 02/14/25 13:44 Height 1.85 m Height Method Stated Weight 122.98 kg Weight Measurement Method Standing Scale BMI 35.7 BP 163/86 H Blood Pressure Source Automatic Cuff Blood Pressure Location Left Upper Arm Position Sitting Respiration 18 Pulse 50 L Pulse Source Monitor Temp 98.1 F Temp Source Temporal Artery Scan Pulse Oximetry (%) 92 L Oxygen Delivery Method Room Air Med/Allergies Allergies & Medications Allergies No Known Allergies Allergy (Unknown, Verified 02/14/25 13:45) Medication Reconciliation benazepril 40 mg tablet 40 mg PO DAILY 05/02/23 [History Confirmed 02/14/25] carvedilol 12.5 mg tablet 12.5 mg PO BID 05/02/23 [History Confirmed 02/14/25] tamsulosin 0.4 mg capsule 0.4 mg PO DAILY 05/02/23 [History Confirmed 02/14/25] trazodone 50 mg tablet 50 mg PO HS PRN Sleep 05/02/23 [History Confirmed 02/14/25] pantoprazole 40 mg tablet,delayed release (Protonix) 40 mg PO QDAY #30 tabs 05/04/23 [Rx Confirmed 02/14/25] cephalexin 500 mg tablet 500 mg PO BID 02/14/25 [History Confirmed 02/14/25] Exam Exam Patient is in no acute distress and is cooperative with the examination today. Breathing is nonlabored. Patient has a normal mood and affect. Bilateral extremities were evaluated and demonstrates sensation intact to light touch. Palpable pedal pulses are present. No significant edema is present. Bilateral hips were examined. The patient has no pain with log roll of the hips. Internal rotation to 30 degrees and external rotation to 30 degrees is painless. Negative FADIR. Right knee was examined today. The right knee incision is clean dry and intact Left knee was examined today. The left knee is in varus alignment. Range of motion from 0-115 degrees. Knee is stable to varus and valgus as well as AP translation with <5mm. Patient has a negative McMurrays. There is no pain with patellofemoral compression and no crepitus noted. The knee is tender to palpation medially. Assessment and Plan Problem List (1) Arthritis of left knee: Status: Acute Plan: Patient is a 69-year-old male with a left knee arthritis of significant severity. We discussed different treatment options. I would like to see weightbearing x-rays. He will likely need a medical and cardiac clearance for surgery. I will see him back to go over x-ray results Advanced Care Planning Discussion Advance care planning discussed with:: patient Office Procedures GNS Level of Care Nursing/Assessment Patient Status: Initial/New Patient Nursing Assessment/Reassesment: Medication Reconciliation, Update PMH in EMR and Vital Signs Coordination of Care: Complex Care and Chronic Disease 1-5, Education Complex Pt/Fam, Consent,records obtained, informed consent, 1 Ins Authorization, Lab and Imaging orders, Results/Orders obtained and Staff clarify orders New Patient Charge New Patient Point Assignment: 1124 New Patient Point Charge: DIRECTOR OF VENDOR MANAGEMENT Level 4 ([id number]) MA Intake Visit Data Collection New Patient or Established: New Patient (never been to [facility]) Reason for Visit:: L KNEE POLYOSEOARTHRITIS Seen by Clinical Staff ONLY (RN/MA): No Controls Operator Molded Goods Required: No PCP or OBGYN visit in last 3 months: Yes Hx Now: No Do You Feel Safe at Home: Yes Authorities Contacted: N/A Questionairres Past Medical History Past Medical History Have you ever been diagnosed with any of the following: Neurological Problems Transient Ischemic Attacks (TIA): Yes (had a blank stare- resolved) Seizures: No Cardiology Problems Peripheral Vascular Disease: Yes Congestive Heart Failure: No Edema: Yes (legs) Hypertension: Yes Respiratory Problems Chronic Obstructive Pulmonary Disease (COPD): No Asthma: No Smoking: No Smoking Exposure: No Stomache/Intestinal Problems Gastrointestinal Bleed: No Ulcer: No Colorectal Cancer: Yes (colon cancer) Genital/Urinary Problems Renal Disease: No Endocrine Problems Diabetes Mellitus Type 1: No Diabetes Mellitus Type 2: No Blood Problems Sickle Cell Disease: No Other Problems Falls: No Blood Transfusions: No Blood Transfusion Reaction: No Anesthesia Reactions: No Subjective Visit Visit for: new patient and knee Immunization / Flu Flu Vaccine in the Last 12 Months: No Flu Vaccine Exclusion Criteria: Refused by Patient History of Present Illness Chief complaint: Left knee pain Ramon is a pleasant 69-year-old male with a left knee pain and left knee arthritis of significant severity. He had his right knee replaced 3 years ago and is doing well. He reports the left knee is significantly bothering him. 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 We have discussed that this puts him at high risk for infection. He also does see a recreation therapist and will need cardiac clearance before surgery. He reports the left knee is affecting his quality life and happiness. The pain is primarily medially Pain Pain level (0-10): 10 Pain duration: COMES AND GOES Pain location: inside (medial), outside (lateral), anterior and posterior Pain quality: sharp, dull and aching Pain timing: increases with activity and stairs Associated signs & symptoms: stiffness Treatments Improvement with previous injections: No Improvement with PT: Yes Improvement with NSAIDS: no Review of Systems Review of Systems: All systems negative unless otherwise noted in HPI.
== END 2025-02-14 13:51 | disposition home or self-care (01) ==
LOC: HODSRG 13:27
PROVIDERS: PCP Family Medicine; Referring Provider Family Medicine; Supervising Provider Orthopaedic Surgery Adult Reconstructive Orthopaedic Surgery; Visit Provider Orthopaedic Surgery Adult Reconstructive Orthopaedic Surgery
DX: M17.12 Unilateral primary osteoarthritis, left knee (principal); I10 Essential (primary) hypertension; M25.562 Pain in left knee; B35.1 Tinea unguium
CPT/HCPCS: 73564; 99204; G0463

== ENCOUNTER 2025-04-04 13:08 | Outpatient (AMB) | payer MEDICARE, MEDICAID, SELFPAY ==
[2025-04-04 13:27] VITALS: BP 165/90; PULSE 70; RESP 19; TEMP 36.4; O2SAT 94; BMI 35.4
--- NOTE | 2025-04-04 13:27 | ORTHONT_ITS ---
Vital signs 04/04/25 13:27 Height 1.85 m Height Method Stated Weight 121.194 kg Weight Measurement Method Standing Scale BMI 35.4 BP 165/90 H Blood Pressure Source Automatic Cuff Blood Pressure Location Left Upper Arm Position Sitting Respiration 19 Pulse 70 Pulse Source Monitor Temp 97.6 F Temp Source Temporal Artery Scan Pulse Oximetry (%) 94 L Oxygen Delivery Method Room Air Med/Allergies Allergies & Medications Allergies No Known Allergies Allergy (Unknown, Verified 04/04/25 13:28) Medication Reconciliation benazepril 40 mg tablet 40 mg PO DAILY 05/02/23 [History Confirmed 04/04/25] carvedilol 12.5 mg tablet 12.5 mg PO BID 05/02/23 [History Confirmed 04/04/25] tamsulosin 0.4 mg capsule 0.4 mg PO DAILY 05/02/23 [History Confirmed 04/04/25] trazodone 50 mg tablet 50 mg PO HS PRN Sleep 05/02/23 [History Confirmed 04/04/25] pantoprazole 40 mg tablet,delayed release (Protonix) 40 mg PO QDAY #30 tabs 05/04/23 [Rx Confirmed 04/04/25] cephalexin 500 mg tablet 500 mg PO BID 02/14/25 [History Confirmed 04/04/25] Exam Exam Patient is in no acute distress and is cooperative with the examination today. Breathing is nonlabored. Patient has a normal mood and affect. Bilateral extremities were evaluated and demonstrates sensation intact to light touch. Palpable pedal pulses are present. No significant edema is present. Bilateral hips were examined. The patient has no pain with log roll of the hips. Internal rotation to 30 degrees and external rotation to 30 degrees is painless. Negative FADIR. Right knee was examined today. The right knee incision is clean dry and intact Left knee was examined today. The left knee is in varus alignment. Range of motion from 0-115 degrees. Knee is stable to varus and valgus as well as AP translation with <5mm. Patient has a negative McMurrays. There is no pain with patellofemoral compression and no crepitus noted. The knee is tender to palpation medially. X-rays x-rays cemented right total knee replacement Position. Left knee demonstrates mild arthritis medial obliteration of the joint space Assessment and Plan Problem List (1) Arthritis of left knee: Status: Acute Plan: Patient is a 69-year-old male with a left knee arthritis of significant severity. We discussed different treatment options. X-rays demonstrate complete obliteration of the medial joint space and arthritis. We discussed total knee replacement is a reasonable option. He will need medical and cardiac clearance. He would definitely need cardiac clearance as he has venous stasis changes. We discussed with the patient and his daughter that he is at high risk for surgery given his medical morbidities including stroke. Fortunately is on no blood thinners. The nature and purpose of the total knee replacement, alternative method(s) of treatment, the material risks involved, and the possibility of complications were fully explained to the patient. The patient does NOT have any of the following contraindications to TKA: - Active infection of the knee joint, OR - Active systemic bacteremia, OR - Active skin infection or open wound at surgical site, OR - Neuropathic arthritis, OR - Severe, rapidly progressive neurological disease, OR - Severe medical condition that makes risks of surgery outweigh the potential benefit The patient was told the most common risks and complications associated with a total knee replacement include, but are not limited to: blood clots in the leg, fatal pulmonary embolism, dislocation of the prosthesis, intraoperative and postoperative fractures of the femur or tibia, infection, failure of the prosthesis or grafting materials, complications from anesthesia, reactions to blood transfusions, postoperative leg length inequality, instability of the knee replacement, nerve damage or injury, vascular injury, delayed wound healing, infection, other injury or even . In addition, there are risks associated with anesthesia given during this operation. Also, the patient was told that a fter undergoing a total knee replacement there may still be persistent pain or disability. The patient was informed that the success of this operation in part depends upon the mechanical devices which are going to be implanted and that these devices can fail or malfunction, and may need to be repaired or replaced and there are no guarantees as to the longevity of this device or its parts and that it or its parts could fail prematurely. The patient was also notified that during the course of surgery, there may be a need to use bone graft from donors, and that any bone graft used will b e carefully screened for communicable diseases, including AIDS, hepatitis, Asaf-Creutzfeldt, or other diseases, but despite the screening procedures, there is a small chance that they could contract one of these diseases. Finally, the patient was asked to follow completely and fully with all advice and recommended treatments, and that recovery and ultimate outcome are affected by their compliance with recommended treatment. We discussed the risks, benefits and treatment alternatives, and the patient is interested in proceeding with surgery. We will try to set this up as expeditiously as possible. Advanced Care Planning Discussion Advance care planning discussed with:: patient Office Procedures GNS Level of Care Nursing/Assessment Patient Status: Established Patient Nursing Assessment/Reassesment: Medication Reconciliation, Update PMH in EMR and Vital Signs Coordination of Care: Complex Care and Chronic Disease 1-5, Education Complex Pt/Fam, Consent,records obtained, informed consent, Results/Orders obtained and Staff clarify orders Special Needs: Language special needs Established Patient Charge Established Patient Point Assignment: 95 Established Patient Point Charge: EP Level 3 (80-115) MA Intake Visit Data Collection Reason for Visit:: L KNEE POLYOSEOARTHRITIS /XRAY RESULTS Seen by Clinical Staff ONLY (RN/MA): No Mounting Machine Operator Required: Yes PCP or OBGYN visit in last 3 months: Yes Hx Now: No Do You Feel Safe at Home: Yes Authorities Contacted: N/A Questionairres Past Medical History Past Medical History Have you ever been diagnosed with any of the following: Neurological Problems Transient Ischemic Attacks (TIA): Yes (had a blank stare- resolved) Seizures: No Cardiology Problems Peripheral Vascular Disease: Yes Congestive Heart Failure: No Edema: Yes (legs) Hypertension: Yes Respiratory Problems Chronic Obstructive Pulmonary Disease (COPD): No Asthma: No Smoking: No Smoking Exposure: No Stomache/Intestinal Problems Gastrointestinal Bleed: No Ulcer: No Colorectal Cancer: Yes (colon cancer) Genital/Urinary Problems Renal Disease: No Endocrine Problems Diabetes Mellitus Type 1: No Diabetes Mellitus Type 2: No Blood Problems Sickle Cell Disease: No Other Problems Falls: No Blood Transfusions: No Blood Transfusion Reaction: No Anesthesia Reactions: No Subjective Visit Visit for: follow up visit, knee and x-rays Immunization / Flu Flu Vaccine in the Last 12 Months: No Flu Vaccine Exclusion Criteria: Refused by Patient History of Present Illness Chief complaint: Left knee pain Ramon is a pleasant 69-year-old male with a left knee pain and left knee arthritis of significant severity. He had his right knee replaced 3 years ago and is doing well. He reports the left knee is significantly bothering him. 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 We have discussed that this puts him at high risk for infection. He also does see a patient services representative and will need cardiac clearance before surgery. He reports the left knee is affecting his quality life and happiness. The pain is primarily medially Pain Pain level (0-10): 0 Pain duration: COMES AND GOES Pain location: inside (medial), outside (lateral), anterior and posterior Pain quality: sharp, dull and aching Pain timing: increases with activity and stairs Associated signs & symptoms: none Ambulatory data Ambulatory device: walker Treatments Improvement with previous injections: No Improvement with PT: Yes Improvement with NSAIDS: no Review of Systems Review of Systems: All systems negative unless otherwise noted in HPI.
== END 2025-04-04 13:43 | disposition home or self-care (01) ==
LOC: HODSRG 13:08
PROVIDERS: PCP Family Medicine; Referring Provider Family Medicine; Supervising Provider Orthopaedic Surgery Adult Reconstructive Orthopaedic Surgery; Visit Provider Orthopaedic Surgery Adult Reconstructive Orthopaedic Surgery
DX: M17.12 Unilateral primary osteoarthritis, left knee (principal); M25.562 Pain in left knee; B35.1 Tinea unguium
CPT/HCPCS: 99213; G0463

== ENCOUNTER 2025-04-29 19:54 | Emergency (ER) | payer MEDICARE, MEDICAID, SELFPAY ==
[2025-04-29 19:55] VITALS: BMI 37.5
[2025-04-29 20:12] VITALS: BP 157/76; PULSE 98; RESP 18; TEMP 38.8; O2SAT 94
--- NOTE | 2025-04-29 20:25 | EKG_ITS ---
[facility] Test Date: 2025-04-29 Pat Name: SARATH MORRIS Department: Room: - Gender: Male Fire Services Plumber: : [id number] Requested By: Michael Mason Order Number: [id number] Reading MD: Michael Mason Measurements Intervals [place] Rate: 101 P: 43 AL: 147 QRS: 148 QRSD: 149 T: 4 QT: 351 QTc: 456 Interpretive Statements SINUS TACHYCARDIA RIGHT AXIS DEVIATION [QRS AXIS > 100] RIGHT BUNDLE BRANCH BLOCK [120+ ms QRS DURATION, UPRIGHT V1, 40+ ms S IN I/aVL/V4/V5/V6] Compared to ECG 12/12/2024 03:06:06 Sinus rhythm no longer present /store/S0/[id number].pdf
--- NOTE | 2025-04-29 20:42 | XR_ITS ---
Examination: CT abdomen and pelvis without contrast. Coronal 3-D reconstructions. Sagittal 2-D reconstructions. Date and time of exam:April 29, 2020 510 0 4:00 PM INDICATIONS: Generalized abdominal pain with fever this week CTDI: vol (mGy): 12.9 DLP: (mGycm): 903 Technique: Axial images of the abdomen have been obtained, 3 mm slice thickness Intravenous contrast material has not been administered. Low dose protocols were performed. One or more of the following dose reduction techniques were used; automated exposure control, adjustment of the mA and/or KV according to patient size, use of iterative reconstruction technique. Findings: No focal liver or splenic lesions Cholelithiasis No pancreatic or adrenal mass Moderate renal parenchymal scar formation with small renal cysts Aorta normal size No bowel obstruction Normal appendix 30 mm fat-containing umbilical hernia Prominent cystitis pattern with pericystic inflammatory change and wall thickening Transverse posterior dimension 4.8 cm IMPRESSION: [id number] renal parenchymal scar formation, no hydronephrosis renal or ureteral calculi Normal appendix. Severe cystitis pattern
--- NOTE | 2025-04-29 20:42 | XR_ITS ---
Examination: AP chest single view TECHNIQUE: AP upright portable chest single view Date and time: 04/29/2025 2100 hours INDICATIONS: Weakness today. FINDINGS: Normal heart size. Lungs are clear. 4.4 cm bleb in the left upper lobe, noted on the CT chest 05/24/2024 No pneumonia or pulmonary edema The osseous structures are intact IMPRESSION: No pneumonia or pulmonary edema
--- NOTE | 2025-04-29 20:46 | PD.EDMALE ---
ED Male Genitalurinary RME/HPI General Chief complaint: General Adult/Misc Complain Stated complaint: GENERLIZED WEAKNESS, UTI SYMPTOMS Time Seen by Provider: 04/29/25 20:42 Arrival date/time: 04/29/25 19:54 70M with history of HTN, CVA/TIA, L eye blindness, BPH, colon cancer s/p resection and OA presents to ED with daughter for 1 day of dysuria, fevers/chills, and generalized weakness/fatigue. Daughter denies N/V, URI symptoms, and SOB. Limitations: no limitations Related Data Home Medications ?Medication ?Instructions ?Recorded ?Confirmed benazepril 40 mg tablet 40 mg PO DAILY 05/02/23 04/04/25 carvedilol 12.5 mg tablet 12.5 mg PO BID 05/02/23 04/04/25 tamsulosin 0.4 mg capsule 0.4 mg PO DAILY 05/02/23 04/04/25 trazodone 50 mg tablet 50 mg PO HS PRN Sleep 05/02/23 04/04/25 cephalexin 500 mg tablet 500 mg PO BID 02/14/25 04/04/25 Previous Rx's ?Medication ?Instructions ?Recorded pantoprazole 40 mg tablet,delayed 40 mg PO QDAY #30 tabs 05/04/23 release (Protonix) cefuroxime axetil 500 mg tablet 500 mg PO BID 10 days #20 tabs 04/29/25 Allergies Allergy/AdvReac Type Severity Reaction Status Date / Time No Known Allergies Allergy Unknown Verified 04/29/25 19:57 Review of Systems Review of Systems Systems Reviewed: All systems reviewed, normal except as documented Constitutional Constitutional: Reports system reviewed and no additional complaints, except as documented, Reports as per HPI, Reports chills, Reports fatigue, Reports fever(s) and Denies headache(s) ENT Ears, Nose, Mouth, and Throat: Denies disequilibrium and Denies headache(s) Cardiovascular Cardiovascular: Reports system reviewed and no additional complaints, except as documented, Denies chest pain and Denies dyspnea Respiratory Respiratory: Reports system reviewed and no additional complaints, except as documented, Denies cough and Denies dyspnea Gastrointestinal Gastrointestinal: Reports system reviewed and no additional complaints, except as documented, Denies abdominal pain, Denies nausea and Denies vomiting Genitourinary Genitourinary: Reports as per HPI and Reports dysuria Neurologic Neurologic: Reports system reviewed and no additional complaints, except as documented, Denies confusion, Denies disequilibrium and Denies headache(s) Psychiatric Psychiatric: Denies confusion Endocrine Endocrine: Reports fatigue Past Medical History Past Medical History NEUROLOGIC: Positive Transient Ischemic Attacks (TIA) (had a blank stare- resolved); Negative Seizures CARDIAC: Positive Cardiac Disorders, Peripheral Vascular Disease, Edema (legs) and Hypertension; Negative Congestive Heart Failure RESPIRATORY: Negative Chronic Obstructive Pulmonary Disease (COPD), Asthma, Smoking or Smoking Exposure GASTROINTESTINAL: Positive Colorectal Cancer (colon cancer); Negative Gastrointestinal Disorders, Gastrointestinal Bleed or Ulcer GENITOURINARY: Positive Genitourinary Disorders (prostate problem); Negative Renal Disease ENDOCRINE: Negative Diabetes Mellitus Type 1 or Diabetes Mellitus Type 2 HEMATOLOGIC: Negative Sickle Cell Disease OTHER HISTORY: Positive Colorectal Cancer (colon cancer); Negative Falls, Blood Transfusions, Blood Transfusion Reaction or Anesthesia Reactions Social History SMOKING STATUS: Never smoker SECOND HAND EXPOSURE: No SUBSTANCE USE: does not use ED Exam General Limitations: Present no limitations General appearance: Present alert and in no apparent distress Head Head exam: Present atraumatic Eye Eye exam: Present normal appearance, PERRL and EOMI ENT ENT exam: Present normal exam, normal oropharynx and mucous membranes moist Neck Neck exam: Present normal inspection, full ROM and trachea midline Chest Chest inspection: Present normal inspection and symmetric chest wall rise Respiratory Respiratory exam: Present normal lung sounds bilaterally Cardiovascular Cardiovascular exam: Present regular rate, normal rhythm and normal heart sounds Abdominal Exam Abdominal exam: Present soft and normal bowel sounds Extremities Exam Extremities exam: Present normal inspection and full ROM Back Exam Back exam: Present normal inspection and full ROM Neurological Exam Neurological exam: Present alert, oriented X3 and CN II-XII intact Psychiatric Psychiatric exam: Present normal affect and normal mood Skin Skin exam: Present warm, dry, intact and normal color Course Quality Measures none Orders Category Date Time Status Bedside COVID-19 Antigen Test NOW Care 04/29/25 20:45 Active Bedside Influenza A&B Antigen Test NOW Care 04/29/25 20:45 Completed EKG (ED ONLY) *Do not use* NOW Care 04/29/25 20:25 Completed Insert IV NOW Care 04/29/25 20:[address] abdomen pelvis wo con Stat Exams 04/29/25 20:42 Completed EKG (ED Only) Stat Exams 04/29/25 20:25 Draft XR chest 1V portable Stat Exams 04/29/25 20:42 Completed Blood Culture (Lab) Stat Lab 04/29/25 21:06 Received CBC Stat Lab 04/29/25 21:02 Completed CMP [Comprehensive Metabolic Panel] Stat Lab 04/29/25 21:02 Completed Lactate (Lactic Acid) Stat Lab 04/29/25 21:02 Completed Lipase Stat Lab 04/29/25 21:02 Completed Procalcitonin Stat Lab 04/29/25 21:02 Completed Troponin I Stat Lab 04/29/25 21:02 Completed UA [Urinalysis] Stat Lab 04/29/25 21:46 Completed Urine Culture Stat Lab 04/29/25 21:46 Received Acetaminophen Tab [Tylenol ES Tab] Med 04/29/25 20:43 Discontinued 1,000 mg PO X1 ONE Ringers Lactated 1000 ml [Lactated Ringers] 1,000 ml Med 04/29/25 22:59 Discontinued IV 999 mls/hr Sodium Chloride 0.9% 1000 ml [Ns] 1,000 ml Med 04/29/25 20:43 Discontinued IV 999 mls/hr cefTRIAXone [Rocephin] 2 gm Med 04/29/25 20:44 Discontinued SODIUM CHLORIDE 0.9% (Popper) [Ns 0.9% (P)] 100 ml IV X1 Vital Signs Vital signs: Vital Signs Temperature 101.9 F H 04/29/25 20:12 Pulse Rate 98 04/29/25 20:12 Respiratory Rate 18 04/29/25 20:12 Blood Pressure 157/76 H 04/29/25 20:12 Pulse Oximetry (%) 94 L 04/29/25 20:12 Oxygen Delivery Method Room Air 04/29/25 20:12 O2 at 94% on RA Urogenital - Male MDM Narrative MDM Narrative:: 70M with history of HTN, CVA/TIA, L eye blindness, BPH, colon cancer s/p resection and OA presents to ED with daughter for 1 day of dysuria, fevers/chills, and generalized weakness/fatigue. Daughter denies N/V, URI symptoms, and SOB. Physical exam reveals clear lungs and normal WOB. No ab tenderness. Patient is febrile, but does not appear toxic. EKG is sinus tach of 101 with RBBB, which is seen on previous EKG as well. CXR unremarkable except for bleb, which was seen on previous CT. Normal trop. Moderate leukocytosis. Cr minimally elevated. UA suggests UTI, which is confirmed on CT. Procal/lactate normal. Patient felt better after meds and VS returned to WNLs. Patient and daughter do not want to be admitted. Patient data External records reviewed:: [facility] previous records Clinical information provided by:: patient Social determinants that could affect healthcare access:: none Patient has the following chronic illnesses:: HTN, CVA/TIA, L eye blindness, BPH, colon cancer s/p resection and OA How is presenting disease/condition affected by chronic disease/condition?: exacerbated by Evaluation data The following diagnostics were reviewed and interpreted by me:: lab results, radiology exam(s) and EKG tracing(s) Lab and/or radiology exams considered but not ordered:: ordered Interpretation Summary: above Medications / Prescriptions Medications or Prescriptions considered but not ordered:: ordered Medication administrations:: Medication Administration History Discontinued Medications Acetaminophen (Acetaminophen 500 Mg Tablet) 1,000 mg PO X1 ONE Stop: 04/29/25 20:44 Last Admin: 04/29/25 21:18 Dose: 1,000 mg Documented By: Sodium Chloride (Ns) 1,000 mls @ 999 mls/hr IV .Q1H1M ONE Stop: 04/29/25 21:43 Last Infusion: 04/29/25 23:15 Dose: Infused Documented By: Admin: 04/29/25 21:23 Dose: 999 mls/hr Documented By: SOMMER Ceftriaxone Sodium 2 gm/ (Sodium Chloride) 100 mls @ 200 mls/hr IV X1 ONE Stop: 04/29/25 21:13 Last Infusion: 04/29/25 22:05 Dose: Infused Documented By: Admin: 04/29/25 21:25 Dose: 200 mls/hr Documented By: SOMMER Lactated Ringer's (Lactated Ringers) 1,000 mls @ 999 mls/hr IV .Q1H1M ONE Stop: 04/29/25 23:59 Last Infusion: 04/30/25 00:02 Dose: Infused Documented By: Admin: 04/29/25 23:12 Dose: 999 mls/hr Documented By: BELEM above Consultations Consultation(s) initiated? (list below): No Diagnosis Urogenital Male Differential Diagnosis: urinary tract infection, priapism, urethritis, epididymitis, genital herpes simplex, prostatitis, acute retention of urine and inguinal hernia Most likely diagnosis given after review of the tests above:: UTI Admission Indicated Admission indicated?: not indicated Explain why admission is indicated or not indicated:: patient declined Admission Request Was there a request for admission?: No Disposition Plan Disposition Plan: Discharge Discharge Attestation Discharge Attestation: The patient and all family members were given an opportunity to ask questions and understood the discharge instructions. Discharge instructions specifically effects, indications for sooner follow up or return to the emergency department, and the expected course of current diagnosis. Patient condition: Stable Discharge Plan Plan Patient Disposition: HOME (Self Care) Discharge Disposition comment: Stable Prescriptions/Referrals Prescriptions/Med Rec: New cefuroxime axetil 500 mg tablet 500 mg PO BID 10 Days Qty: 20 0RF No Action cephalexin 500 mg tablet 500 mg PO BID benazepril 40 mg tablet 40 mg PO DAILY trazodone 50 mg tablet 50 mg PO HS PRN (Reason: Sleep) carvedilol 12.5 mg tablet 12.5 mg PO BID Rx Instructions: with food tamsulosin 0.4 mg capsule 0.4 mg PO DAILY pantoprazole [Protonix] 40 mg tablet,delayed release (DR/EC) 40 mg PO QDAY Qty: 30 3RF Referrals: Ranjan Wolfe MD [Primary Care Provider] - In 1 week Problem List Clinical Impression: Urinary tract infection Patient/Caregiver Discharge Instructions Education Materials: ED Bladder Infection, Male (Adult) Additional Instructions: Please follow-up with PCP within 24-48 hours and return immediately if symptoms worsen. Print Language: Kazakh Stand Alone Forms: Patient Portal Info Letter NANCY/BECKI Supervising Physician LUISA Supervising Physician: Dr. Allan
[2025-04-29 21:18] VITALS: TEMP 38.8
[2025-04-29] MEDS: ACETAMINOPHEN 500 MG TABLET 1000 MG PO (21:18)
[2025-04-29 21:21] LABS: Lactate (Lactic Acid) 1.3 mMol/L (0.4-2.0)
[2025-04-29] MEDS: SODIUM CHLORIDE 0.9% 1000 ML 1,000 ML 999 ML IV (21:23)
[2025-04-29] MEDS: cefTRIAXone 2 GM in SODIUM CHLORIDE 0.9% (Popper) 100 ML IV (21:25)
[2025-04-29 21:27] LABS: Basophils # (Auto) 0.0 Thou/mm3 (0.0-0.2); Basophils % (Auto) 0 % (0-2.5); Eosinophils # (Auto) 0.0 Thou/mm3 (0.0-0.5); Eosinophils % (Auto) 0 % (0-10); Hematocrit 42.0 % (41.0-53.0); Hemoglobin 14.3 g/dL (13.5-16.0); Immature Granulocytes Auto 0.10 Thou/mm3 (0.00-0.00); Lymphocytes # (Auto) 1.1 Thou/mm3 (1.0-4.8); Lymphocytes % (Auto) 7 % (10-50); Mean Corpuscular HGB Conc 34.0 g/dl (31.0-37.0); Mean Corpuscular Hemoglobin 29.9 pg (25.0-35.0); Mean Corpuscular Volume 88 fL (80-100); Monocytes # (Auto) 1.0 Thou/mm3 (0.0-0.8); Monocytes % (Auto) 6 % (0-12); Neutrophils # (Auto) 14.4 Thou/mm3 (1.8-7.7); Neutrophils % (Auto) 87 % (37-80); Nucleated Red Blood Cell # 0.00 Thou/mm3 (0.00-0.00); Nucleated Red Blood Cell % 0 /100 WBC (0); Platelet Count 163 Thou/mm3 (140-440); RDW Standard Deviation 42.9 fL (35.1-43.9); Red Blood Count 4.78 Miln/mm3 (4.50-5.90); White Blood Count 16.7 Thou/mm3 (3.8-10.6)
[2025-04-29 21:54] LABS: Alanine Aminotransferase 7 U/L (10-49); Albumin, Serum 4.0 gm/dL (3.4-4.8); Albumin/Globulin Ratio 1.3 (1.2-2.2); Alkaline Phosphatase 83 U/L (46-116); Anion Gap 8 (7-16); Aspartate Amino Transferase 16 U/L (0-34); BUN/Creatinine Ratio 11 Ratio (12-20); Bilirubin,Total 1.4 mg/dL (0.3-1.2); Blood Urea Nitrogen 15 mg/dL (9-23); Calcium 8.8 mg/dL (8.3-10.6); Calcium (Corrected) 8.8 mg/dL (8.5-10.1); Carbon Dioxide 27.2 mMol/L (20.0-31.0); Chloride 102 mMol/L (98-107); Creatinine (Component) 1.4 mg/dL (0.6-1.3); Estimated Creatinine Clearance 69.2 mL/min (>60); Globulin 3.0 gm/dL (2.3-3.5); Glucose 170 mg/dL (74-106); Lipase 28 U/L (12-53); Osmolality,Calculated 278 (275-295); Potassium 3.9 mMol/L (3.4-5.1); Procalcitonin 0.32 ng/ml (0.0-0.49); Sodium 137 mMol/L (136-145); Total Protein 7.0 gm/dL (5.7-8.2); Troponin I < 0.020 ng/mL (0.0-0.045); eGFR 54 See Note
[2025-04-29 21:55] LABS: Collection Type, Urine Clean Catch
[2025-04-29 22:04] LABS: Bacteria,Urine 1+; Bilirubin,Urine Negative (Negative); Blood,Urine 3+ (Negative); Clarity,Urine Turbid (Clear/Hazy); Color,Urine Yellow (Lt Yel-Yel); Glucose, Urine Negative (Negative); Ketones,Urine Negative (Negative); Leukocyte Esterase,Urine Positive (Negative); Nitrite,Urine Negative (Negative); PH,Urine 5.5 (5.0-7.0); Protein,Urine 1+ (Neg - Trace); RBC,Urine 71 /hpf (0-3); Specific Gravity,Urine 1.030 (1.001-1.035); Squamous Epithelial Cell,Urine 2 /hpf (0-5); Urobilinogen,Urine 8.0 mg/dL (0.0-1.0); WBC,Urine 170 /hpf (0-5)
[2025-04-29] MEDS: RINGERS LACTATED 1000 ML 1,000 ML 999 ML IV (23:12)
[2025-04-29 23:21] VITALS: BP 123/70; PULSE 67; RESP 20; TEMP 37.6; O2SAT 95
[2025-04-29 23:53] VITALS: TEMP 37.6
== END 2025-04-30 00:02 | disposition home or self-care (01) ==
PROVIDERS: Physician Assistant; Emergency Provider Emergency Medicine; PCP Family Medicine
DX: N39.0 Urinary tract infection, site not specified (principal); N40.0 Benign prostatic hyperplasia without lower urinary tract symptoms; Z85.038 Personal history of other malignant neoplasm of large intestine; Z90.79 Acquired absence of other genital organ(s); I10 Essential (primary) hypertension
CPT/HCPCS: 36415; 71045; 74176; 80053; 81001; 83605; 83690; 84145; 84484; 85025; 87040; 87077; 87086; 87186; 87400; 87811; 93005; 96361; 96365; 99283; J0696; J7030; J7050; J7120; A9270

== ENCOUNTER 2025-06-19 11:38 | Inpatient (IN) | payer MEDICARE, MEDICAID, SELFPAY ==
[2025-06-19] VITALS (19 sets, daily range): BP systolic 81–167; BP diastolic 48–94; PULSE 56–81; RESP 17–96; TEMP 36.3–37.2; O2SAT 92–98; BMI 38.1
--- NOTE | 2025-06-19 12:04 | XR_ITS ---
Examination: CT brain head without contrast. 2-D sagittal coronal reconstructions Date and time of exam: June 19, 2025, 1215 hours INDICATIONS: Stroke alert onset focal neurologic deficit today CTDI: vol (mGy): 55.1 DLP: (mGycm): 1124 Technique: Multiple CT axial sections of the brain have been obtained, 5 mm slice thickness. Contrast has not been administered. 2-D sagittal, coronal reconstructions have been obtained Low dose protocols were performed. One or more of the following dose reduction techniques were used; automated exposure control, adjustment of the mA and/or KV according to patient size, use of iterative reconstruction technique. Findings: Again noted posterior craniotomy defect with encephalomalacia in the right parietal lobe Ventricles are not enlarged Again noted extensive chronic microvascular white matter change Again noted old infarcts in the basal ganglia Again noted old infarct in the left cerebellar hemisphere IMPRESSION: No interval acute hemorrhage mass effect or midline shift
--- NOTE | 2025-06-19 12:04 | XR_ITS ---
EXAMINATION: AP chest single view TECHNIQUE: AP portable upright chest single view Date and time: June 19, 2025, 1259 hours, comparison April 29, 2025 INDICATIONS: Stroke alert today FINDINGS: Normal heart size No aspiration pneumonia Moderate osteopenia IMPRESSION: Negative for aspiration pneumonia
--- NOTE | 2025-06-19 12:04 | EKG_ITS ---
[facility] Test Date: 2025-06-19 Pat Name: SARATH MORRIS Department: Room: - Gender: Male [employer] Slaughterer: : 1955 Requested By: Nichole Ardon Order Number: [id number] Reading MD: Nichole Ardon Measurements Intervals [place] Rate: 73 P: 75 WI: 161 QRS: 100 QRSD: 107 T: 31 QT: 427 QTc: 474 Interpretive Statements SINUS RHYTHM BORDERLINE RIGHT AXIS DEVIATION [QRS AXIS > 90] Compared to ECG 04/29/2025 20:30:18 Sinus tachycardia no longer present Right bundle-branch block no longer present /store/S0/[id number].pdf
--- NOTE | 2025-06-19 12:04 | XR_ITS ---
Examination: CTA carotids with intravenous contrast CTA brain, head with intravenous contrast. 2-D sagittal, coronal reconstructions. 3-D reconstructions. Exam date and time: June 19, 2025, 1226 hours INDICATIONS: Stroke alert today, onset focal neurologic deficit CTDI: vol (mGy) 11.9 DLP: (mGycm) 462 Technique: Multiple CTA axial brain, head carotid images post intravenous contrast injection 75 cc, [id number]. 2-D sagittal, coronal reconstructions. 3-D reconstructions, 3-D post processing including vascular maximum intensity projection images. Low dose protocols were performed. One or more of the following dose reduction techniques were used; automated exposure control, adjustment of the mA and/or KV according to patient size, use of iterative reconstruction technique. Findings: Bleb in the left upper lung zone No significant common carotid carotid bifurcation or internal carotid artery stenoses Minimally dominant left vertebral artery in the neck no critical stenoses Intracranial vertebral arteries basilar artery and posterior cerebral branches fill with no large vessel occlusions M1 segments middle cerebral arteries middle cerebral artery trifurcation vessels anterior cerebral arteries demonstrate no large vessel occlusions IMPRESSION: No neck arterial significant stenoses No cerebral large vessel arterial occlusions or thrombus
--- NOTE | 2025-06-19 12:05 | PD.EDNEURO ---
Neuro Symptoms Deficit-RME/HPI General Chief Complaint: Neuro Symptoms/Deficit Stated Complaint: DIFF WALKING, DIFF SPEAKING SINCE 11 AM, POSS FEVE Time Seen by Provider: 06/19/25 11:53 Arrival date/time: 06/19/25 11:38 RME / HPI RME / HPI Narrative: 70-year-old male patient with significant history of multiple stroke in the past, hypertension, colon cancer, s/p resection, left-sided blindness, was brought in by family for strokelike symptoms. Last well-known time 6:30 PM last night, patient was noted this morning stroke with his urine in the bed, and was confused and have difficulty getting up or walking. Patient usually walk on his own and take care of himself going to the restroom without help except with a walker. On my initial evaluation patient was noted to be having weakness according to him it is generalized. Patient denies any headache denies any dizziness. Patient is currently not taking any blood thinner. Related Data Home Medications ?Medication ?Instructions ?Recorded ?Confirmed benazepril 40 mg tablet 40 mg PO DAILY 05/02/23 04/04/25 carvedilol 12.5 mg tablet 12.5 mg PO BID 05/02/23 04/04/25 tamsulosin 0.4 mg capsule 0.4 mg PO DAILY 05/02/23 04/04/25 trazodone 50 mg tablet 50 mg PO HS PRN Sleep 05/02/23 04/04/25 cephalexin 500 mg tablet 500 mg PO BID 02/14/25 04/04/25 Previous Rx's ?Medication ?Instructions ?Recorded pantoprazole 40 mg tablet,delayed 40 mg PO QDAY #30 tabs 05/04/23 release (Protonix) Allergies Allergy/AdvReac Type Severity Reaction Status Date / Time No Known Allergies Allergy Unknown Verified 06/19/25 11:43 Review of Systems Review of Systems Narrative Review of Systems: Review of system reviewed and within normal limits except mentioned in HPI ED Exam Narrative Physical exam: VITAL SIGNS: Reviewed. GENERAL APPEARANCE: Alert and interactive, follows commands, no acute distress, GCS of 15 HEAD AND FACE: Non-traumatic. ENT: PERRL, pink conjunctivitis, eyelid no trauma, Mucous membrane moist. NECK: Supple, nontender, no nuchal rigidity. CHEST: No tenderness, no crepitus, no paradoxical movement, no retractions. LUNGS: Clear, well ventilated, symmetric, no rales, no wheezing, no ronchi, no stridor, good breath sounds bilaterally. HEART: Regular rate, regular rhythm, no murmur, no gallops. ABDOMEN: Soft, positive bowel sounds, nondistended, no guarding, nontender, no rebound, no masses, RECTAL: Deferred. GENITAL: Deferred. NEUROLOGICAL: Gross motor function intact sensory function intact, Appropriate for age. MUSCULOSKELETAL: low back nontender, full range of motion. EXTREMITIES: Nontender, full range of motion. SKIN: Color pink, dry, no rash, no lacerations, no abrasions, no contusions. LYMPHATICS: Deferred. Course Quality Measures none Orders Category Date Time Status Bedside Blood Glucose NOW Care 06/19/25 12:04 Active Bedside COVID-19 Antigen Test NOW Care 06/19/25 13:07 Active Bedside Influenza A&B Antigen Test NOW Care 06/19/25 13:08 Completed COVID-19 Screening Questionnaire NOW Care 06/19/25 19:29 Active Editor Producer NOW Care 06/19/25 12:04 Active Continuous Pulse Oximetry NOW Care 06/19/25 12:04 Completed Decision to Admit X1 Care 06/19/25 19:29 Active EKG (ED ONLY) *Do not use* NOW Care 06/19/25 12:04 Completed In and Out Catheter NEEDED Care 06/19/25 12:04 Active In and Out Catheter X1 Care 06/19/25 13:34 Completed Insert IV NOW Care 06/19/25 12:04 Active NIH Stroke Scale now Care 06/19/25 12:04 Active NPO NOW Care 06/19/25 12:04 Active Nurse Swallow Screen x1 Care 06/19/25 12:04 Active Consult to Neurology / Tele-Neurology Routine Cons 06/19/25 12:[address] abdomen pelvis wo con Stat Exams 06/19/25 14:[address] angio stroke protocol Stat Exams 06/19/25 12:[address] stroke protocol Stat Exams 06/19/25 12:04 Completed EKG (ED Only) Stat Exams 06/19/25 12:04 Draft XR chest 1V portable Stat Exams 06/19/25 12:04 Completed Blood Culture (Lab) Stat Lab 06/19/25 13:28 Received CBC Stat Lab 06/19/25 12:25 Completed Comprehensive Metabolic Panel Stat Lab 06/19/25 12:25 Completed Drug Screen,Urine Stat Lab 06/19/25 13:36 Completed Lactate (Lactic Acid) Stat Lab 06/19/25 13:49 Completed Lactic Acid, 3 HR Stat Lab 06/19/25 17:06 Completed Magnesium Stat Lab 06/19/25 12:25 Completed Partial Thromboplastin Time Stat Lab 06/19/25 12:25 Completed Procalcitonin Stat Lab 06/19/25 13:49 Completed Prothrombin Time with INR Stat Lab 06/19/25 12:25 Completed Troponin I Stat Lab 06/19/25 12:25 Completed Troponin I Stat Lab 06/19/25 17:06 Completed Urinalysis, C/S if Indicated Stat Lab 06/19/25 13:36 Completed Urine Culture Stat Lab 06/19/25 13:36 Received Acetaminophen Tab [Tylenol ES Tab] Med 06/19/25 14:47 Discontinued 1,000 mg PO X1 ONE Aspirin [Ecotrin] Med 06/19/25 13:17 Discontinued 81 mg PO X1 ONE Labetalol IV [Trandate IV] Med 06/19/25 12:04 Active 10 mg IVP Q15M PRN Ondansetron Inj [Zofran Inj] Med 06/19/25 12:04 Active 4 mg IVP Q4HR PRN Ringers Lactated 1000 ml [Lactated Ringers] 1,000 ml Med 06/19/25 12:30 Discontinued IV 999 mls/hr Ringers Lactated 1000 ml [Lactated Ringers] 1,000 ml Med 06/19/25 14:44 Discontinued IV 999 mls/hr cefTRIAXone/D5w 1gm IV premix [Rocephin/D5w 1gm IV Med 06/19/25 13:06 Discontinued premix] 1 gm in 50 ml IV X1 Oxygen Delivery NOW RT 06/19/25 12:04 Active Vital Signs Vital signs: Vital Signs Temperature 98.8 F 06/19/25 11:57 Pulse Rate 81 06/19/25 11:57 Respiratory Rate 19 06/19/25 11:57 Blood Pressure 99/66 06/19/25 11:57 Pulse Oximetry (%) 95 06/19/25 11:57 Oxygen Delivery Method Room Air 06/19/25 11:57 Neuro Symptoms / Deficit MDM Narrative MDM Narrative:: 70-year-old male patient with significant history of multiple stroke in the past, hypertension, colon cancer, s/p resection, left-sided blindness, was brought in by family for strokelike symptoms. Last well-known time 6:30 PM last night, patient was noted this morning stroke with his urine in the bed, and was confused and have difficulty getting up or walking. Patient usually walk on his own and take care of himself going to the restroom without help except with a walker. On my initial evaluation patient was noted to be having weakness according to him it is generalized. Patient denies any headache denies any dizziness. Patient is currently not taking any blood thinner. Stroke alert was initiated at 1207 I spoke with teleneurologist, who told me that patient's symptoms could be metabolic in nature. Recommendation is admit and start the patient on aspirin 81 mg. No recommendation for MRI at this time. Sepsis alert was initiated also. EKG was sinus rhythm, with ventricular rate of 73 bpm, SD interval 161 MS, no ST segment elevation or depression noted. CT scan of the head came back unremarkable. CT angio of the head and neck came back unremarkable. CT scan of the abdomen showed cholelithiasis with no sign of acute cholecystitis. CBC showed leukocytosis of 21.7, urinalysis significant for UTI. Chest x-ray came back with no sign of pneumonia. Patient received IV fluids and ceftriaxone IV. Spoke with hospitalist, who was admitted the patient Patient data External records reviewed:: None Clinical information provided by:: patient and family Social determinants that could affect healthcare access:: none Patient has the following chronic illnesses:: Hypertension multiple stroke in the past How is presenting disease/condition affected by chronic disease/condition?: exacerbated by Evaluation data The following diagnostics were reviewed and interpreted by me:: lab results, radiology exam(s) and EKG tracing(s) Lab and/or radiology exams considered but not ordered:: None Interpretation Summary: See results MDM Medications / Prescriptions Medications or Prescriptions considered but not ordered:: None Medication administrations:: Medication Administration History Acetaminophen (Acetaminophen 325 Mg Tablet) 650 mg PO Q6H PRN PRN Reason: Fever >100.4 Stop: 07/19/25 20:41 Acetaminophen (Acetaminophen 325 Mg Tablet) 650 mg PO Q6H PRN PRN Reason: PAIN SCALE 1-3 (mild Stop: 07/19/25 20:41 Heparin Sodium (Porcine) (Heparin Sod Inj 5000 Unit/Ml Vial) 5,000 unit SC BID [facility] Stop: 07/04/25 08:59 Ceftriaxone Sodium/Dextrose (Rocephin/D5w 1gm Iv Premix) 1 gm in 50 mls @ 100 mls/hr IV QDAY [facility] Stop: 06/26/25 20:49 Last Admin: 06/19/25 21:35 Dose: 100 mls/hr Documented By: ARIANNA Lactated Ringer's (Lactated Ringers) 1,000 mls @ 125 mls/hr IV .Q8H [facility] Stop: 06/20/25 04:53 Last Admin: 06/19/25 21:36 Dose: 125 mls/hr Documented By: ARIANNA Labetalol HCl (Labetalol Inj 5 Mg/Ml Vial 20 Ml) 10 mg IVP Q15M PRN PRN Reason: HYPER Ondansetron HCl (Ondansetron Inj 2 Mg/Ml Inj 2 Ml) 4 mg IVP Q4HR PRN PRN Reason: NAUSEA OR VOMITING Stop: 07/19/25 12:03 Ondansetron HCl (Ondansetron Inj 2 Mg/Ml Inj 2 Ml) 4 mg IVP Q6H PRN; Protocol PRN Reason: NAUSEA OR VOMITING Stop: 07/19/25 20:41 Sennosides (Senna Tablet) 1 tab PO QDAY PRN; Protocol PRN Reason: constipation Stop: 07/19/25 20:41 Discontinued Medications Acetaminophen (Acetaminophen 500 Mg Tablet) 1,000 mg PO X1 ONE Stop: 06/19/25 14:48 Last Admin: 06/19/25 15:39 Dose: 1,000 mg Documented By: ADAL Aspirin (Aspirin Ec 81 Mg Tabec) 81 mg PO X1 ONE Stop: 06/19/25 13:18 Last Admin: 06/19/25 13:44 Dose: 81 mg Documented By: ADAL Aspirin (Aspirin Ec 81 Mg Tabec) 81 mg PO X1 ONE Stop: 06/19/25 21:02 Last Admin: 06/19/25 21:35 Dose: 81 mg Documented By: ARIANNA Atorvastatin Calcium (Atorvastatin Calcium 10 Mg Tablet) 80 mg PO X1 ONE Stop: 06/19/25 21:02 Lactated Ringer's (Lactated Ringers) 1,000 mls @ 999 mls/hr IV .Q1H1M ONE Stop: 06/19/25 13:30 Last Infusion: 06/19/25 13:49 Dose: Infused Documented By: Admin: 06/19/25 12:48 Dose: 999 mls/hr Documented By: EF Ceftriaxone Sodium/Dextrose (Rocephin/D5w 1gm Iv Premix) 1 gm in 50 mls @ 100 mls/hr IV X1 ONE Stop: 06/19/25 13:35 Last Infusion: 06/19/25 14:14 Dose: Infused Documented By: Admin: 06/19/25 13:44 Dose: 100 mls/hr Documented By: EF Lactated Ringer's (Lactated Ringers) 1,000 mls @ 999 mls/hr IV .Q1H1M ONE Stop: 06/19/25 15:44 Last Infusion: 06/19/25 15:53 Dose: Infused Documented By: Admin: 06/19/25 14:52 Dose: 999 mls/hr Documented By: EF see MDM Consultations Consultation(s) initiated? (list below): No Diagnosis Neuro Differential Diagnosis: cerebrovascular accident and other (Sepsis, UTI) Most likely diagnosis given after review of the tests above:: Sepsis, UTI Admission Indicated Admission indicated?: indicated Admission Request Was there a request for admission?: Yes Admission Attestation Admission request attestation: Discussed case with [Dr. Almaraz] from Hospitalist service regarding admission. Discussed patients ED course, exam findings, labs, and radiology results. The Hospitalist [agrees] to accept the patient for admission. Disposition Plan Disposition Plan: Admit Discharge Plan Plan Patient Disposition: Admit Acute Care w/in Hospital Problem List Clinical Impression: Sepsis, UTI (urinary tract infection)
[2025-06-19 12:42] LABS: Basophils # (Auto) 0.1 Thou/mm3 (0.0-0.2); Basophils % (Auto) 0 % (0-2.5); Eosinophils # (Auto) 0.0 Thou/mm3 (0.0-0.5); Eosinophils % (Auto) 0 % (0-10); Hematocrit 42.1 % (41.0-53.0); Hemoglobin 14.7 g/dL (13.5-16.0); Immature Granulocytes Auto 0.14 Thou/mm3 (0.00-0.00); Lymphocytes # (Auto) 0.6 Thou/mm3 (1.0-4.8); Lymphocytes % (Auto) 3 % (10-50); Mean Corpuscular HGB Conc 34.9 g/dl (31.0-37.0); Mean Corpuscular Hemoglobin 30.6 pg (25.0-35.0); Mean Corpuscular Volume 88 fL (80-100); Monocytes # (Auto) 0.7 Thou/mm3 (0.0-0.8); Monocytes % (Auto) 3 % (0-12); Neutrophils # (Auto) 20.3 Thou/mm3 (1.8-7.7); Neutrophils % (Auto) 94 % (37-80); Nucleated Red Blood Cell # 0.00 Thou/mm3 (0.00-0.00); Nucleated Red Blood Cell % 0 /100 WBC (0); Platelet Count 157 Thou/mm3 (140-440); RDW Standard Deviation 42.6 fL (35.1-43.9); Red Blood Count 4.81 Miln/mm3 (4.50-5.90); White Blood Count 21.7 Thou/mm3 (3.8-10.6)
[2025-06-19] MEDS: RINGERS LACTATED 1000 ML 1,000 ML 999 ML IV ×2 (12:48→14:52)
[2025-06-19 13:01] LABS: INR 1.1 (0.9-1.3); Partial Thromboplastin Time 29.0 Seconds (22.0-36.0); Prothrombin Time 11.6 Seconds (9.0-12.2)
--- NOTE | 2025-06-19 13:01 | PD.TNEURO ---
Tele Neuro Consultation Consultation Date 06/19/25 Most Recent Vital Signs Last Vital Signs Temp 98.8 F 06/19/25 11:57 Pulse 75 06/19/25 12:45 Resp 18 06/19/25 12:45 BP 111/71 06/19/25 12:45 Pulse Ox 95 06/19/25 12:45 O2 Del Method Room Air 06/19/25 12:45 Consultation Narrative [facility] Consult [facility] Patient Name:???RAMON ROSS Date of :???1955 Identification Number:??? Date of Service:???06/19/2025 12:07:43 Diagnosis:?M62.81 - Generalized Muscle Weakness Impression: ?Ramon Ross is a 70 y.o. man with a history of prior stroke with no residual deficits, hypertension, left eye blindness, colon cancer s/p resection, BPH, bilateral osteoarthritis of knee, chronic venous stasis who was LKW at midnight before he went to bed. Family brought him to the ER because of generalized weakness and altered mental status. He is slower to respond compared to normal. Patient denies any numbness/tingling. He complains of feeling weak all over. He has pain in his bones. NIHSS 4 for R>L LE weakness. Non contrast head CT shows no acute findings. There is encephalomalacia in the R parietal lobe and old infarcts in the bilateral basal ganglia and left cerebellum. CTA head/neck shows no LVO. Labs are notable for WBC 21.7. Differential diagnosis includes toxic/metabolic encephalopathy vs recrudescence of prior deficits vs less likely new stroke. ? ? ?Recommendations: ?- toxic/metabolic workup ?- Start aspirin 81 mg daily for secondary stroke prevention ?- if patient's symptoms do not improve with treatment of underlying infections/metabolic derangements, can order MRI brain without contrast to rule out acute ischemia ?- goal BP normotensive Our recommendations are outlined below. Recommendations: ? Initiate or continue Aspirin 81 MG daily Sign Out: ? Discussed with Emergency Department Provider Advanced Imaging:CTA Head and Neck Completed. LVO:No Patient is not a candidate for ISHAN Metrics: Last Known Well: 06/19/2025 00:00:00 Dispatch Time: 06/19/2025 12:07:42 Arrival Time: 06/19/2025 11:38:00 Initial Response Time: 06/19/2025 12:10:39Symptoms: generalized weakness, altered mental status. Initial patient interaction: 06/19/2025 12:18:55 NIHSS Assessment Completed: 06/19/2025 12:26:34Patient is not a candidate for Thrombolytic. Thrombolytic Medical Decision: 06/19/2025 12:26:35Patient was not deemed candidate for Thrombolytic because of following reasons: LKW outside 4.[address] Head: I personally reviewed all the CT images that were available to me and it showed: no signs of acute ischemia or acute hemorrhage. There is encephalomalacia in the R parietal lobe and old infarcts in the bilateral basal ganglia and left cerebellum. I personally reviewed the CTA head/neck. There are no signs of LVO. Primary Provider Notified of Diagnostic Impression and Management Plan on: 06/19/2025 13:01:25 History of Present Illness:Patient is a 70 year old Male. Patient was brought by private transportation with symptoms of generalized weakness, altered mental status. Ramon Ross is a 70 y.o. man with a history of prior stroke with no residual deficits, hypertension, left eye blindness, colon cancer s/p resection, BPH, bilateral osteoarthritis of knee, chronic venous stasis who was LKW at midnight before he went to bed. Family brought him to the ER because of generalized weakness and altered mental status. He is slower to respond compared to normal. Patient denies any numbness/tingling. He complains of feeling weak all over. He has pain in his bones. ? Past Medical History: Other PMH:? prior stroke with no residual deficits, hypertension, left eye blindness, colon cancer s/p resection, BPH, bilateral osteoarthritis of knee, chronic venous stasis Medications: No Anticoagulant use? No Antiplatelet use Reviewed EMR for current medications Allergies:? Reviewed,NKDA Social History: Smoking: No Alcohol Use: No Family History: There is no family history of premature cerebrovascular disease pertinent to this consultation ROS : 14 Points Review of Systems was performed and was negative except mentioned in HPI. Past Surgical History: There Is No Surgical History Contributory To Today?s Visit ? Examination: BP(91/55),?Pulse(77), 1A: Level of Consciousness - Alert; keenly responsive?+ 0 1B: Ask Month and Age - Both Questions Right?+ 0 1C: Blink Eyes & Squeeze Hands - Performs Both Tasks?+ 0 2: Test Horizontal Extraocular Movements - Normal?+ 0 3: Test Visual Cope - No Visual Loss?+ 0 4: Test Facial Palsy (Use Grimace if Obtunded) - Normal symmetry?+ 0 5A: Test Left Arm Motor Drift - No Drift for 10 Seconds?+ 0 5B: Test Right Arm Motor Drift - No Drift for 10 Seconds?+ 0 6A: Test Left Leg Motor Drift - Drift, but doesn't hit bed?+ 1 6B: Test Right Leg Motor Drift - No Effort Against [place]?+ 3 7: Test Limb Ataxia (FNF/Heel-[place]iveros) - No Ataxia?+ 0 8: Test Sensation - Normal; No sensory loss?+ 0 9: Test Language/Aphasia - Normal; No aphasia?+ 0 10: Test Dysarthria - Normal?+ 0 11: Test Extinction/Inattention - No abnormality?+ 0 NIHSS Score:?4 Pre-Morbid Modified Dolores Scale: 2 Points = Slight disability; unable to carry out all previous activities, but able to look after own affairs without assistance Spoke with :?BECKI [place] This consult was conducted in real time using interactive audio and video technology. Patient was informed of the technology being used for this visit and agreed to proceed. Patient located in hospital and provider located at home/office setting. Patient is being evaluated for possible acute neurologic impairment and high probability of imminent or life-threatening deterioration. I spent total of 40 minutes providing care to this patient, including time for face to face visit via telemedicine, review of medical records, imaging studies and discussion of findings with providers, the patient and/or family. Dr Helga Gonzalez [facility] For Inpatient follow-up with [facility] physician please call [facility] at . As we are not an outpatient service for any post hospital discharge needs please contact the hospital for assistance. If you have any questions for the [facility] physicians or need to reconsult for clinical or diagnostic changes please contact us via [facility] at . Signature :Darrick Gonzalez
[2025-06-19 13:07] LABS: Alanine Aminotransferase 13 U/L (10-49); Albumin, Serum 3.8 gm/dL (3.4-4.8); Albumin/Globulin Ratio 1.4 (1.2-2.2); Alkaline Phosphatase 74 U/L (46-116); Anion Gap 13 (7-16); Aspartate Amino Transferase 41 U/L (0-34); BUN/Creatinine Ratio 8 Ratio (12-20); Bilirubin,Total 1.6 mg/dL (0.3-1.2); Blood Urea Nitrogen 19 mg/dL (9-23); Calcium 8.3 mg/dL (8.3-10.6); Calcium (Corrected) 8.5 mg/dL (8.5-10.1); Carbon Dioxide 23.8 mMol/L (20.0-31.0); Chloride 100 mMol/L (98-107); Creatinine (Component) 2.5 mg/dL (0.6-1.3); Estimated Creatinine Clearance 39.0 mL/min (>60); Globulin 2.8 gm/dL (2.3-3.5); Glucose 202 mg/dL (74-106); Magnesium 2.0 mg/dL (1.6-2.6); Osmolality,Calculated 282 (275-295); Potassium 4.2 mMol/L (3.4-5.1); Sodium 137 mMol/L (136-145); Total Protein 6.6 gm/dL (5.7-8.2); eGFR 27 See Note
[2025-06-19 13:10] LABS: Troponin I 0.878 ng/mL (0.0-0.045)
[2025-06-19] MEDS: cefTRIAXone/D5w 1gm IV premix 1 GM/50 ML BAG IV ×2 (13:44→21:35)
[2025-06-19] MEDS: ASPIRIN EC 81 MG TABEC PO ×2 (13:44→21:35)
[2025-06-19 13:48] LABS: Collection Type, Urine Clean Catch
[2025-06-19 14:00] LABS: Amphetamine/Methamp Scrn,U Negative (Negative); Barbiturate Screen,Urine Negative (Negative); Benzodiazepines Screen,Urine Negative (Negative); Benzoylecgonine Screen, Ur Negative (Negative); Fentanyl Screen,Urine Negative (Negative); Opiate Screen,Urine Negative (Negative); THC Screen,Urine Negative (Negative)
[2025-06-19 14:04] LABS: Lactate (Lactic Acid) 3.4 mMol/L (0.4-2.0)
[2025-06-19 14:08] LABS: Bilirubin,Urine Negative (Negative); Blood,Urine 3+ (Negative); Clarity,Urine Clear (Clear/Hazy); Color,Urine Yellow (Lt Yel-Yel); Glucose, Urine Negative (Negative); Hyaline Casts,Urine < 1 /hpf (0-1); Ketones,Urine Negative (Negative); Leukocyte Esterase,Urine Positive (Negative); Nitrite,Urine Negative (Negative); PH,Urine 6.0 (5.0-7.0); Protein,Urine 1+ (Neg - Trace); RBC,Urine 120 /hpf (0-3); Squamous Epithelial Cell,Urine 4 /hpf (0-5); Urobilinogen,Urine 4.0 mg/dL (0.0-1.0); WBC,Urine 39 /hpf (0-5)
[2025-06-19 14:24] LABS: Specific Gravity,Urine <= 1.005 (1.001-1.035)
[2025-06-19 14:39] LABS: Culture Indicated,Urine Yes
--- NOTE | 2025-06-19 14:43 | XR_ITS ---
Examination: CT abdomen and pelvis without contrast. Coronal 3-D reconstructions. Sagittal 2-D reconstructions. Date and time of exam: June 19, 2025, 1524 hours, comparison April 29, 2025 INDICATIONS: Generalized weakness, sepsis alert today CTDI: vol (mGy): 12.4 DLP: (mGycm): 899 Technique: Axial images of the abdomen have been obtained, 3 mm slice thickness Intravenous contrast material has not been administered. Low dose protocols were performed. One or more of the following dose reduction techniques were used; automated exposure control, adjustment of the mA and/or KV according to patient size, use of iterative reconstruction technique. Findings: No focal liver or splenic lesions Cholelithiasis no gallbladder wall thickening No pancreatic or adrenal mass Small benign renal cysts Moderate renal scar formation No renal or ureteral calculi, no hydronephrosis Minimal perinephric stranding Aorta normal size No bowel obstruction Normal appendix 26 mm fat-containing umbilical hernia Scattered colonic diverticulosis Marked thickening of the urinary bladder wall Normal seminal vesicles Abundant stool in the rectum Transverse prostate dimension 4.4 cm Moderate disc narrowing L5-S1 IMPRESSION: Cholelithiasis, negative for cholecystitis Perinephric stranding, consider urinary tract infection Pronounced thickening of the bladder wall, cystitis bladder
[2025-06-19 14:59] LABS: Procalcitonin 65.58 ng/ml (0.0-0.49)
[2025-06-19] MEDS: ACETAMINOPHEN 500 MG TABLET 1000 MG PO (15:39)
[2025-06-19 16:57] LABS: Reflex Lactate? Y
[2025-06-19 17:20] LABS: Lactic Acid, 3 HR 1.8 mMol/L (0.4-2.0)
[2025-06-19 17:46] LABS: Troponin I 0.640 ng/mL (0.0-0.045)
--- NOTE | 2025-06-19 20:07 | PC.NURSE ---
pt resting quietly. family at beside. Dr with pt now. pt in no acute distress. VS are stable.
--- NOTE | 2025-06-19 21:16 | ESHP_ITS ---
<Statement entered by Flaco Oseguera MD - 06/20/25 06:01> I have discussed and was present for the essential components of the history, physical examination, diagnosis, and treatment plan with the resident. I agree with the patient's care as documented by the resident and amended herein by me. Flaco Oseguera MD FACP. Documentation for date of: 06/19/25 HPI History of Present Illness Chief complaint: Weakness and B/L flank pain. History of present illness: This is a 75-year-old male with past medical history of hypertension, stroke, left eye blindness, BPH, bilateral osteoarthritis presented to the ED with complaints of weakness,lethargy and bilateral flank pain for 2 days. At baseline he walks to the kitchen and bathroom in his house. He has been experiencing bilateral flank pain , weakness,lethargic since last 2 days which is associated with increased urinary frequency, urgency. He denies any fevers, chest pain, chest tightness, shortness of breath, abdominal pain,slurring of speech ,drooling,loss of consciousness,headache, nausea, vomiting and diarrhea. He came to the ED as lethargic so they ordered the stroke workup. ED visit. BP 140/87, HI 63, resp 17, temperature 97.1. Saturating 96% on room air. Pertinent labs WBC 14.7, neutrophils 94%, creatinine 2.5, creatinine clearance 39, GFR 27, total bilirubin 1.6, AST 41, troponin 0.8, Pro-Aren 65.58, urine blood 3+. Imaging abdominal CT shows cholelithiasis ,perinephric stranding and thickening of bladder. CT head angio no occlusion in the arteries CT head shows no bleeding , mass and midline shift. EKG looks normal. Chest x-ray looks normal. Past medical history: Hypertension takes medications carvedilol. Urinary hesitancy takes Flomax. Stop trazodone. Past surgical history: Right knee surgery Allergic history: No known allergies Family history: Absence of distal interphalange in hands in his siblings. Social history: Denies alcohol and smoking. Exam Vital Signs Temp Pulse Resp BP Pulse Ox O2 Del Method 98 F 57 L 18 153/90 H 98 Room Air 06/19/25 21:12 06/19/25 21:12 06/19/25 21:12 06/19/25 21:12 06/19/25 21:12 06/19/25 21:12 Narrative Exam GENERAL: NAD, AAOx3 HEENT: scalp deformity Moist mucosa. Eyes open, symmetrical, & clear CARDIO: Rapid regular rhythm Noted. No Murmurs. PULM: No noted coughing/dyspnea CTA B/L, no R/W/R GI: Abdomen soft, nondistended, Tenderness on palpation of suprapubic area and flank area. SKIN/MSK/EXT: Chronic venous statsis on B/L legs and pigmentation. No wounds/rashes/amputations, no pain on palpation.Edema on B/L legs upto knees. Distal interphalanges absent on the fingers Pedal pulses present B/L NEURO: AAOx3, no focal neuro deficits, able to move all 4 extremities Results: Labs 06/19/25 12:25 06/19/25 12:25 Labs: Short CBC 06/19/25 Range/Units 12:25 WBC 21.7 H (3.8-10.6) Thou/mm3 Hgb 14.7 (13.5-16.0) g/dL Hct 42.1 (41.0-53.0) % Plt Count 157 (140-440) Thou/mm3 BMP 06/19/25 12:25 Sodium 137 Potassium 4.2 Chloride 100 Carbon Dioxide 23.8 BUN 19 Creatinine 2.5 H Glucose 202 H Calcium 8.3 Cardiac Enzymes 06/19/25 06/19/25 Range/Units 12:25 17:06 Troponin I 0.878 H* 0.640 H* D (0.0-0.045) ng/mL Liver Function 06/19/25 Range/Units 12:25 Total Bilirubin 1.6 H (0.3-1.2) mg/dL AST 41 H (0-34) U/L ALT 13 (10-49) U/L Alkaline Phosphatase 74 (46-116) U/L Albumin 3.8 (3.4-4.8) gm/dL Urine 06/19/25 Range/Units 13:36 Urine Color Yellow (Lt Yel-Yel) Urine Clarity Clear (Clear/Hazy) Urine pH 6.0 (5.0-7.0) Ur Specific [place] <= 1.005 (1.001-1.035) Urine Protein 1+ A (Neg - Trace) Urine Glucose (UA) Negative (Negative) Quality Measures Quality Measures VTE prophylaxis Advance care planning discussed with:: patient Medications Home Medications and Allergies Home Medications ?Medication ?Instructions ?Recorded ?Confirmed ?Type benazepril 40 mg tablet 40 mg PO DAILY 05/02/2306/11 History carvedilol 12.5 mg tablet 12.5 mg PO BID 05/02/2306/11 History tamsulosin 0.4 mg capsule 0.4 mg PO DAILY 05/02/2307/05 History trazodone 50 mg tablet 50 mg PO HS PRN Sleep 06/20/25 History cephalexin 500 mg tablet 500 mg PO BID 02/14/2506/20 History Allergies Allergy/AdvReac Type Severity Reaction Status Date / Time No Known Allergies Allergy Unknown Verified 06/19/25 11:43 Visit Medications Acetaminophen (Acetaminophen 325 Mg Tablet) 650 mg PO Q6H PRN PRN Reason: Fever >100.4 Stop: 07/19/25 20:41 Acetaminophen (Acetaminophen 325 Mg Tablet) 650 mg PO Q6H PRN PRN Reason: PAIN SCALE 1-3 (mild Stop: 07/19/25 20:41 Heparin Sodium (Porcine) (Heparin Sod Inj 5000 Unit/Ml Vial) 5,000 unit SC BID [facility] Stop: 07/04/25 08:59 Ceftriaxone Sodium/Dextrose (Rocephin/D5w 1gm Iv Premix) 1 gm in 50 mls @ 100 mls/hr IV QDAY EVGENY Stop: 06/26/25 20:49 Lactated Ringer's (Lactated Ringers) 1,000 mls @ 125 mls/hr IV .Q8H [facility] Stop: 06/20/25 04:53 Labetalol HCl (Labetalol Inj 5 Mg/Ml Vial 20 Ml) 10 mg IVP Q15M PRN PRN Reason: HYPER Ondansetron HCl (Ondansetron Inj 2 Mg/Ml Inj 2 Ml) 4 mg IVP Q4HR PRN PRN Reason: NAUSEA OR VOMITING Stop: 07/19/25 12:03 Ondansetron HCl (Ondansetron Inj 2 Mg/Ml Inj 2 Ml) 4 mg IVP Q6H PRN; Protocol PRN Reason: NAUSEA OR VOMITING Stop: 07/19/25 20:41 Sennosides (Senna Tablet) 1 tab PO QDAY PRN; Protocol PRN Reason: constipation Stop: 07/19/25 20:41 Discontinued Medications Acetaminophen (Acetaminophen 500 Mg Tablet) 1,000 mg PO X1 ONE Stop: 06/19/25 14:48 Last Admin: 06/19/25 15:39 Dose: 1,000 mg Aspirin (Aspirin Ec 81 Mg Tabec) 81 mg PO X1 ONE Stop: 06/19/25 13:18 Last Admin: 06/19/25 13:44 Dose: 81 mg Aspirin (Aspirin Ec 81 Mg Tabec) 81 mg PO X1 ONE Stop: 06/19/25 21:02 Atorvastatin Calcium (Atorvastatin Calcium 10 Mg Tablet) 80 mg PO X1 ONE Stop: 06/19/25 21:02 Lactated Ringer's (Lactated Ringers) 1,000 mls @ 999 mls/hr IV .Q1H1M ONE Stop: 06/19/25 13:30 Last Infusion: 06/19/25 13:49 Dose: Infused Ceftriaxone Sodium/Dextrose (Rocephin/D5w 1gm Iv Premix) 1 gm in 50 mls @ 100 mls/hr IV X1 ONE Stop: 06/19/25 13:35 Last Infusion: 06/19/25 14:14 Dose: Infused Lactated Ringer's (Lactated Ringers) 1,000 mls @ 999 mls/hr IV .Q1H1M ONE Stop: 06/19/25 15:44 Last Infusion: 06/19/25 15:53 Dose: Infused Assessment & Plan Plan This is a 75-year-old male with past medical history of hypertension, stroke, left eye blindness, BPH, bilateral osteoarthritis presented with B/l flank pain, urgency, frequency, weakness and lethargy. He was admitted for Complicated UTI. # Complicated UTI. #HODAN Bilateral flank plain, urinary urgency, frequency, weakness and lethargy. Suprapubic tenderness, flank tenderness. WBC 14.7 with neutrophil 94% left shift. Pro-Aren 65.58 urine WBC 39 urine blood 3+. Lactate down trended from 3.4-1.8 CT abdomen shows perinephric stranding and thickening of bladder. ?Ordered ceftriaxone. - f/u cx blood and urine - on IVFs # Stroke alert/CVA work up. NIHS score is 4 CT head shows no hemorrhage midline shift or mass and CT angiography of head shows no occlusion. Tele Neurology was consulted and neurologist recommended starting on aspirin and atorvastatin. ?Ordered aspirin and atorvastatin. - neuro checks - aspiration and seizure precautions ? Ordered speech evaluation and physical therapy.. - consulted neurologist and MRI ordered. - Echo bubble study was ordered. # Hypertension. Continue home medication carvedilol. # BPH Continue Flomax. Code status: Full DVT prophylaxis: Heparin Diet: Regular Lines: PIV Supplemental O2: none Disposition: Med -Tele I discussed this case with my senior Dr. Almaraz and my attending Dr. Oseguera. Abraham Suh MD PGY1.
[2025-06-19] MEDS: RINGERS LACTATED 1000 ML 1,000 ML 125 ML IV (21:36)
[2025-06-20] VITALS (11 sets, daily range): BP systolic 129–158; BP diastolic 68–88; PULSE 61–77; RESP 16–20; TEMP 36.1–36.4; O2SAT 95–97; BMI 34.5
--- NOTE | 2025-06-20 | XR_ITS ---
Examinations: MRI Brain without intravenous contrast. MRA brain without intravenous contrast. MRA carotids without intravenous contrast 3-D vascular reconstructions Date and time of exam: June 20, 2025, 0950 hours INDICATIONS: Stroke alert June 19, 2025, onset focal neurologic deficit Technique: Multiple axial and sagittal images of the brain have been obtained MRA brain carotid images without contrast obtained, including 3-D postprocessing, vascular maximum intensity projection images Findings: S[place] is not enlarged. The optic chiasm and infundibular stalk are not remarkable. Prepontine and interpeduncular cisterns are not enlarged. No localized enlargement of the medulla or al. Fourth ventricle and cerebellar tonsils normal in position. Subacute hemorrhage is not seen. Fourth ventricle is midline. Mass in the cerebellopontine angle region is not evident. 7th and 8th nerve complexes exhibits symmetry. Globes are symmetrical with no retro-orbital mass. Increased white matter signal and very prominent Diffusion-weighted images demonstrate no focus of restricted diffusion Mass-effect upon the ventricular system is not identified. MRA carotid images degraded by patient motion. MRA brain images no large vessel occlusions Impression: Negative for acute hemorrhage, mass effect or midline shift No acute infarct Chronic multi-infarct dementia pattern
[2025-06-20] MEDS: ATORVASTATIN CALCIUM 10 MG TABLET 80 MG PO (00:31)
--- NOTE | 2025-06-20 06:15 | ECHO_ITS ---
Transthoracic Echo Report Ht (in): 73 Wt (lb): 262 Exam Location: [id number] Status: Inpatient Aircraft Worker: Veronica Lai Indications: Procedure Performed: BP: 153 / 83 HR: 85 MEASUREMENTS (Male / Female) Normal Values 2D ECHO LV Diastolic Diameter PLAX 5.7 cm 4.2 - 5.9 / 3.9 - 5.3 cm LV Systolic Diameter PLAX 3.8 cm IVS Diastolic Thickness 0.7 cm 0.6 - 1.0 / 0.6 - 0.9 cm LVPW Diastolic Thickness 1.2 cm 0.6 - 1.0 / 0.6 - 0.9 cm LV Relative Wall Thickness 0.3 LVOT Diameter 2.0 cm LA Volume Index 25.5 cm?/m? 16 - 28 cm?/m? Ascending Aorta Diameter 3.3 cm M-MODE AV Cusp Separation MM 1.6 cm DOPPLER AV Peak Velocity 118.0 cm/s AV Peak Gradient 5.6 mmHg AV Mean Gradient 3.0 mmHg AV Velocity Time Integral 20.0 cm LVOT Peak Velocity 72.1 cm/s LVOT Peak Gradient 2.1 mmHg LVOT Velocity Time Integral 17.9 cm LVOT Cardiac Index 1903.0 cm?/min?m? AV Area Cont Eq vti 2.8 cm? AV Area Cont Eq pk 1.9 cm? MV Area PHT 4.7 cm? Mitral E Point Velocity 51.7 cm/s Mitral A Point Velocity 72.7 cm/s Mitral E to A Ratio 0.7 LV E' Lateral Velocity 7.8 cm/s Mitral E to LV E' Lateral Ratio 6.6 LV E' Septal Velocity 5.7 cm/s Mitral E to LV E' Septal Ratio 9.1 TR Peak Velocity 149.0 cm/s TR Peak Gradient 8.9 mmHg PV Peak Velocity 85.5 cm/s PV Peak Gradient 2.9 mmHg FINDINGS Left Ventricle Normal left ventricular size, wall thickness, systolic function with no obvious regional wall motion abnormalities.There is grade I diastolic dysfunction of the left ventricle (impaired relaxation pattern). The ejection fraction is visually estimated at 50-55 %. Right Ventricle The right ventricle is normal in size and systolic function. Left Atrium The left atrium is normal by two-dimensional, color flow and Doppler imaging with no structural abnormalities, no thrombus formation present. Right Atrium The right atrium is normal by two-dimensional imaging, color flow and Doppler imaging with no structural abnormalities, no thrombus formation present. Atrial Septum No [id number] shunt demonstrated by agitated saline injection. Aorta The aorta is normal by two-dimensional, color flow and Doppler interrogation. Mitral Valve The mitral valve is normal by two-dimensional, color flow and Doppler interrogation. Trace mitral regurgitation. Aortic Valve The aortic valve is trileaflet and normal by two-dimensional, color flow and Doppler interrogation. There is no significant aortic valve regurgitation. Tricuspid Valve The tricuspid valve is normal by two-dimensional, color flow and Doppler interrogation. There is trace tricuspid valve regurgitation. Pulmonic Valve The pulmonic valve is not well visualized. There is no significant pulmonic valve regurgitation. Vessels The pulmonary artery appears normal. The inferior vena cava pulmonary and hepatic veins appear normal. Pericardium The pericardium is normal by two-dimensional imaging. There is no significant pericardial effusion. CONCLUSIONS Indication: CVA work up bubble study Normal left ventricular size and function. Approximate ejection fraction is 50- 55%. Grade I diastolic dysfunction. Trace mitral and trace tricuspid regurgitation noted. negative bubble study Compared to prior study of 09/18/2018 Nadya Nuegnt (Electronically Signed) Final Date: 21 June 2025 23:09
[2025-06-20 06:18] LABS: Basophils # (Auto) 0.0 Thou/mm3 (0.0-0.2); Basophils % (Auto) 0 % (0-2.5); Eosinophils # (Auto) 0.1 Thou/mm3 (0.0-0.5); Eosinophils % (Auto) 1 % (0-10); Hematocrit 35.2 % (41.0-53.0); Hemoglobin 12.5 g/dL (13.5-16.0); Immature Granulocytes Auto 0.03 Thou/mm3 (0.00-0.00); Lymphocytes # (Auto) 0.8 Thou/mm3 (1.0-4.8); Lymphocytes % (Auto) 8 % (10-50); Mean Corpuscular HGB Conc 35.5 g/dl (31.0-37.0); Mean Corpuscular Hemoglobin 30.6 pg (25.0-35.0); Mean Corpuscular Volume 86 fL (80-100); Monocytes # (Auto) 1.1 Thou/mm3 (0.0-0.8); Monocytes % (Auto) 11 % (0-12); Neutrophils # (Auto) 7.9 Thou/mm3 (1.8-7.7); Neutrophils % (Auto) 80 % (37-80); Nucleated Red Blood Cell # 0.00 Thou/mm3 (0.00-0.00); Nucleated Red Blood Cell % 0 /100 WBC (0); Platelet Count 110 Thou/mm3 (140-440); RDW Standard Deviation 42.4 fL (35.1-43.9); Red Blood Count 4.09 Miln/mm3 (4.50-5.90); White Blood Count 9.9 Thou/mm3 (3.8-10.6)
[2025-06-20 06:44] LABS: Alanine Aminotransferase 12 U/L (10-49); Albumin, Serum 3.0 gm/dL (3.4-4.8); Albumin/Globulin Ratio 1.2 (1.2-2.2); Alkaline Phosphatase 60 U/L (46-116); Anion Gap 9 (7-16); Aspartate Amino Transferase 39 U/L (0-34); BUN/Creatinine Ratio 15 Ratio (12-20); Bilirubin,Total 0.6 mg/dL (0.3-1.2); Blood Urea Nitrogen 21 mg/dL (9-23); Calcium 7.7 mg/dL (8.3-10.6); Calcium (Corrected) 8.5 mg/dL (8.5-10.1); Carbon Dioxide 27.9 mMol/L (20.0-31.0); Chloride 104 mMol/L (98-107); Creatinine (Component) 1.4 mg/dL (0.6-1.3); Estimated Creatinine Clearance 66.3 mL/min (>60); Globulin 2.5 gm/dL (2.3-3.5); Glucose 106 mg/dL (74-106); Magnesium 2.1 mg/dL (1.6-2.6); Osmolality,Calculated 284 (275-295); Phosphorous 2.7 mg/dL (2.4-5.1); Potassium 3.6 mMol/L (3.4-5.1); Sodium 141 mMol/L (136-145); Total Protein 5.5 gm/dL (5.7-8.2); eGFR 54 See Note
[2025-06-20] MEDS: TAMSULOSIN HCL 0.4 MG CAPSULE PO (07:59)
[2025-06-20] MEDS: cefTRIAXone/D5w 1gm IV premix 1 GM/50 ML BAG IV (08:00)
[2025-06-20] MEDS: ASPIRIN EC 81 MG TABEC PO (08:00)
[2025-06-20] MEDS: HEPARIN SOD INJ 5000 UNIT/ML VIAL SC ×2 (08:16→21:14)
--- NOTE | 2025-06-20 08:43 | PC.SS ---
Follow up note: On IV antibiotic. MRI pending. Stroke rule out.
[2025-06-20] MEDS: HYDROcodone/APAP 5/325 TABLET 1 TAB PO ×2 (12:27→19:45)
--- NOTE | 2025-06-20 14:36 | ESPR_ITS ---
<Statement entered by Drake Chatman MD - 06/20/25 17:40> Patient seen and assessed in hospital bed reports bilateral shoulder pain and apparently he is not able to completely lift them up. Chest x-ray did not show any fractures or any concerning signs at this time it is believed to be musculoskeletal etiology. Brain MRI is negative for any stroke. Patient continues to be on IV antibiotics for pyelonephritis, pending cultures. Of note, patient randomly starts crying and family bedside states that this is a normal occurrence for him for the past several months and they are unsure exactly why. Recommend outpatient follow-up with PCP. Will continue monitoring the patient and expect discharge within the next 24 hours. I have personally seen and examined the patient. I agree with the resident's assessment and plan as documented below. Drake Chatman DO PGY-2 Internal Medicine - [facility] Documentation for date of: 06/20/25 Subjective Subjective Interval history: No acute events overnight. Patient is lethargic, diaphoretic and a little slow to answer questions. He complains of diffuse bone pain in the shoulders. He complains of flank pain. Son was at bedside and reported that patient had prior stroke but unsure of the details. Patient reports history of colon cancer surgery in 2023 and femoral popliteal bypass surgery. Exam Vital Signs Temp Pulse Resp BP Pulse Ox O2 Del Method 97.6 F 75 17 148/83 H 96 Room Air 06/20/25 11:53 06/20/25 12:00 06/20/25 11:53 06/20/25 11:53 06/20/25 11:53 06/20/25 11:53 Narrative Exam General: Patient alert, oriented, in no acute distress. HEENT: Scalp deformity, atraumatic. PERRLA, EOMI. Neck: Supple, trachea midline, no thyromegaly or lymphadenopathy. Cardiac: Regular rate and rhythm, normal S1/S2, no murmurs, rubs, or gallops. Peripheral pulses 2+ and symmetric. No peripheral edema. Lungs: Normal effort, clear to auscultation bilaterally, no wheezes, rales, or rhonchi. Abdomen: Soft, non-tender, non-distended. Normoactive bowel sounds. No hepatosplenomegaly, no rebound/guarding. Sup Extremities: Bilateral lower extremities with chronic venous stasis changes, including hyperpigmented discoloration and dry, scaly skin on LE. No open ulcers or drainage noted. Skin: Warm, dry, intact. No rashes, lesions, or ecchymoses. Neuro: Alert and oriented ?3. Speech fluent. Cranial nerves II?XII grossly intact. Motor 5/5 throughout, sensation intact. Psych: Anxious, tearful, inattentive. Objective Labs 06/23/25 08:31 06/23/25 08:31 Labs: Laboratory Results - last 24 hr 06/19/25 06/19/25 06/19/25 13:36 13:49 17:06 WBC RBC Hgb Hct MCV MCH MCHC RDW Std Deviation Plt Count Neut % (Auto) Lymph % (Auto) [place] % (Auto) Eos % (Auto) Baso % (Auto) Neut # (Auto) Lymph # (Auto) [place] # (Auto) Eos # (Auto) Baso # (Auto) Immature Gran # (Auto) Absolute Nucleated RBC Immature Gran % Nucleated RBC % Sodium Potassium Chloride Carbon Dioxide Anion Gap BUN Creatinine Estim Creat Clear Calc eGFR BUN/Creatinine Ratio Glucose Calculated Osmolality Lactic Acid 1.8 Calcium Corrected Calcium Phosphorus Magnesium Total Bilirubin AST ALT Alkaline Phosphatase Troponin I 0.640 H* D Total Protein Albumin Globulin Albumin/Globulin Ratio Procalcitonin 65.58 H Ur Collection Type Clean Catch Urine Color Yellow Urine Clarity Clear Urine pH 6.0 Ur Specific [place] <= 1.005 Urine Protein 1+ A Urine Glucose (UA) Negative Urine Ketones Negative Urine Blood 3+ A Urine Nitrite Negative Urine Bilirubin Negative Urine Urobilinogen (Auto) 4.0 Ur Leukocyte Esterase Positive Urine RBC 120 H Urine WBC 39 H Ur Squamous Epith Cells 4 Urine Bacteria None Hyaline Casts < 1 Ur Culture Indicated? Yes 06/20/25 05:36 WBC 9.9 D RBC 4.09 L Hgb 12.5 L D Hct 35.2 L MCV 86 MCH 30.6 MCHC 35.5 RDW Std Deviation 42.4 Plt Count 110 L D Neut % (Auto) 80 Lymph % (Auto) 8 L [place] % (Auto) 11 Eos % (Auto) 1 Baso % (Auto) 0 Neut # (Auto) 7.9 H Lymph # (Auto) 0.8 L [place] # (Auto) 1.1 H Eos # (Auto) 0.1 Baso # (Auto) 0.0 Immature Gran # (Auto) 0.03 H Absolute Nucleated RBC 0.00 Immature Gran % 0 Nucleated RBC % 0 Sodium 141 Potassium 3.6 D Chloride 104 Carbon Dioxide 27.9 Anion Gap 9 BUN 21 Creatinine 1.4 H D Estim Creat Clear Calc 66.3 eGFR 54 L BUN/Creatinine Ratio 15 Glucose 106 D Calculated Osmolality 284 Lactic Acid Calcium 7.7 L Corrected Calcium 8.5 Phosphorus 2.7 Magnesium 2.1 Total Bilirubin 0.6 D AST 39 H ALT 12 Alkaline Phosphatase 60 Troponin I Total Protein 5.5 L Albumin 3.0 L D Globulin 2.5 Albumin/Globulin Ratio 1.2 Procalcitonin Ur Collection Type Urine Color Urine Clarity Urine pH Ur Specific [place] Urine Protein Urine Glucose (UA) Urine Ketones Urine Blood Urine Nitrite Urine Bilirubin Urine Urobilinogen (Auto) Ur Leukocyte Esterase Urine RBC Urine WBC Ur Squamous Epith Cells Urine Bacteria Hyaline Casts Ur Culture Indicated? Quality Measures Quality Measures VTE prophylaxis Advance care planning discussed with:: patient, spouse and child Assessment & Plan Assessment Current Active Medications: Generic Name Dose Route Start Last Admin Trade Name Freq PRN Reason Stop Dose Admin Acetaminophen 650 mg 06/19/25 20:42 Acetaminophen 325 Mg Tablet PO 07/19/25 20:41 Q6H PRN Fever >100.4 Acetaminophen 650 mg 06/19/25 20:42 Acetaminophen 325 Mg Tablet PO 07/19/25 20:41 Q6H PRN PAIN SCALE 1-3 (mild Hydrocodone Bitart/Acetaminophen 1 tab 06/20/25 12:06 06/20/25 12:27 Hydrocodone/Apap 5/325 Tablet PO 06/25/25 12:05 1 tab Q4HR PRN Administration Pain 4-6 Aspirin 81 mg 06/20/25 09:00 06/20/25 08:00 Aspirin Ec 81 Mg Tabec PO 07/20/25 08:59 81 mg QDAY EVGENY Administration Atorvastatin Calcium 80 mg 06/20/25 21:00 Atorvastatin Calcium 20 Mg Tablet PO 07/20/25 20:59 HS EVGENY Carvedilol 12.5 mg 06/20/25 09:00 06/20/25 07:59 Carvedilol 12.5 Mg Tablet PO 07/20/25 08:59 12.5 mg BID EVGENY Administration Heparin Sodium (Porcine) 5,000 unit 06/20/25 09:00 06/20/25 08:16 Heparin Sod Inj 5000 Unit/Ml Vial SC 07/04/25 08:59 5,000 unit BID EVGENY Administration Ceftriaxone Sodium/Dextrose 1 gm in 50 mls @ 100 mls/hr 06/19/25 20:50 06/20/25 08:00 Rocephin/D5w 1gm Iv Premix IV 06/26/25 20:49 100 mls/hr QDAY EVGENY Administration Ondansetron HCl 4 mg 06/19/25 20:42 Ondansetron Inj 2 Mg/Ml Inj 2 Ml IVP 07/19/25 20:41 Q6H PRN NAUSEA OR VOMITING Protocol Sennosides 1 tab 06/19/25 20:42 Senna Tablet PO 07/19/25 20:41 QDAY PRN constipation Protocol Tamsulosin HCl 0.4 mg 06/20/25 09:00 06/20/25 07:59 Tamsulosin Hcl 0.4 Mg Capsule PO 07/20/25 08:59 0.4 mg DAILY EVGENY Administration Trazodone HCl 50 mg 06/20/25 05:22 Trazodone Hcl 50 Mg Tablet PO 07/20/25 05:21 HS PRN Sleep Plan 75-year-old male with PMHx of hypertension, stroke, left eye blindness, BPH, bilateral osteoarthritis presented with weakness, lethargy and bilateral flank pain admitted for evaluation and management of pyelonpehritis and CVA ruleout. #Sepsis 2/2 to Pyelonephritis Patient meets criteria for sepsis given his WBC 14.7 Lactic Acid 3.4 and signs of end organ damage with Cr 2.5 and troponin 0.640 on admission. Currently, labs are notable for Lactic Acid 1.8, Cr 1.4, AST 39, Troponin 0.640, Total protein 5.5, Albumin 3. Patient has concern for pyelonephritis given symptoms of bilateral flank plain, urinary urgency, frequency, weakness and lethargy. CT abdomen shows cholelithiasis (negative for cholecystitis), perinephric stranding (consider urinary tract infection) and thickening of bladder (cystitis bladder). Patient will be continued with broad spectrum antibiotics until cultures are positive. Plan - Continue IV Ceftriaxone - Pending blood and urine cultures f/u cx blood and urine #HODAN 2/2 to Sepsis, resolving Patient has HODAN due to elevated Cr 2.5 now 1.4 likely due to sepsis. Given that the Cr is downtrending, his HODAN is improving. Plan - Monitor volume status - Continue to monitor renal function (daily BMP) - Strict intake/output monitoring - Monitor for signs of recurrent infection or sepsis #CVA ruleout Patient was admitted for evaluation of stroke NIHS score is 4. CT head shows no hemorrhage midline shift or mass and CT angiography of head shows no occlusion. Tele Neurology was consulted and neurologist recommended starting on aspirin and atorvastatin. MRI was negative for acute hemorrhage, mass effect or midline shift. No acute infarct. Chronic multi-infarct dementia pattern. - Continue Aspirin and Atorvastatin - Aspiration and seizure precautions - Pending Echo bubble study - Neuro Checks q4h #Bilateral Musculoskeletal Pain #Hx of Osteoarthritis Patient is complaining of bilateral upper extremity and shoulder pain. Chest x-ray did not show any fractures or any concerning signs at this time it is believed to be musculoskeletal etiology. PT recommended home health. Plan - Follow up outpatient PCP - Order home health upon patient discharge # Hypertension. Patient takes Carvedilol 12.5 mg at home and benazepril 40mg po qday Plan - Continue home medication carvedilol. # BPH Patient takes Flomax 0.4 mg at home. Plan - Continue Flomax Hospital Management: Code status: Full DVT prophylaxis: Heparin Diet: Regular Lines: PIV Supplemental O2: none Disposition: Med -Tele Patient seen and assessed under supervision of attending physician Dr. Noyola. Josep MCCARTHY-JUDSON, Internal Medicine Attending Provider Attestation/Addendum I have examined the patient, reviewed labs and imaging findings, discussed the case with the resident(s), and reviewed entered orders. I agree with the plan of care as outlined in this note. Dr. Dennys MD
--- NOTE | 2025-06-20 15:29 | PC.SS ---
SS met with patient and dtrEvy regarding his d/c plan. Pt is alert/oriented. Pt was admitted for Flank Pain And Urinar Frequency. Pt confirmed demographic and contact information is correct on facesheet. Pt resides with dtr. Pt ambulates utilizing a 4 wheel with seat, rollator walker. Pt requires assistance with all ADLs. Patient?s pharmacy of choice is [facility]. Pt named his dtr, Svitlana Ross medical decision maker if she is unable. SS provided verbal options for d/c to home or SNF. Patient?s choice is to return home upon d/c. Pt states he is not diabetic and is not on dialysis. Pt has [facility] caregiver 13 hours a week. D/C plan: Return home Next of Kin: Svitlana Ross, phone# [phone] PCP: [facility] Address: Correct on facesheet
--- NOTE | 2025-06-20 18:14 | VVPN_ITS ---
Telemedicine visit statement This visit was conducted with the use of phone was obtained on 06/20/25 at 1814. Documentation for date of: 06/20/25 Subjective Subjective Interval history: Patient is in medsurg, no overnight events noted. Intermittently confused and disoriented. Feels generally weak but able to help transfer and use the bedside commode. Virtual exam Vital Signs Temp Pulse Resp BP Pulse Ox O2 Del Method 97.6 F 70 20 134/78 H 96 Room Air 06/20/25 16:00 06/20/25 16:00 06/20/25 16:00 06/20/25 16:00 06/20/25 16:00 06/20/25 16:00 Objective Labs 06/21/25 20:15 06/21/25 20:15 Labs: Laboratory Results - last 24 hr 06/20/25 05:36 WBC 9.9 D RBC 4.09 L Hgb 12.5 L D Hct 35.2 L MCV 86 MCH 30.6 MCHC 35.5 RDW Std Deviation 42.4 Plt Count 110 L D Neut % (Auto) 80 Lymph % (Auto) 8 L [place] % (Auto) 11 Eos % (Auto) 1 Baso % (Auto) 0 Neut # (Auto) 7.9 H Lymph # (Auto) 0.8 L [place] # (Auto) 1.1 H Eos # (Auto) 0.1 Baso # (Auto) 0.0 Immature Gran # (Auto) 0.03 H Absolute Nucleated RBC 0.00 Immature Gran % 0 Nucleated RBC % 0 Sodium 141 Potassium 3.6 D Chloride 104 Carbon Dioxide 27.9 Anion Gap 9 BUN 21 Creatinine 1.4 H D Estim Creat Clear Calc 66.3 eGFR 54 L BUN/Creatinine Ratio 15 Glucose 106 D Calculated Osmolality 284 Calcium 7.7 L Corrected Calcium 8.5 Phosphorus 2.7 Magnesium 2.1 Total Bilirubin 0.6 D AST 39 H ALT 12 Alkaline Phosphatase 60 Total Protein 5.5 L Albumin 3.0 L D Globulin 2.5 Albumin/Globulin Ratio 1.2 Assessment & Plan Problem List (1) Stroke-like symptom: Status: Resolved Assessment and plan: reassured that he did not have any acute infarction. continue with aggressive BP control and other vascular risk factors control (2) Sepsis: Status: Acute Assessment and plan: on IV antibiotics and IVf (3) UTI (urinary tract infection): Status: Acute Assessment and plan: continue with IV antibiotics and follow up with culture and sensitivity (4) Vascular dementia: Status: Chronic Assessment and plan: add ASA 81 mg daily in addition to vascular risk factors control MRI brain showed findings consistent with this.
[2025-06-20] MEDS: ATORVASTATIN CALCIUM 20 MG TABLET 80 MG PO (21:07)
[2025-06-21] VITALS (18 sets, daily range): BP systolic 139–176; BP diastolic 72–99; PULSE 64–115; RESP 15–26; TEMP 36.3–39.5; O2SAT 91–98
--- NOTE | 2025-06-21 05:09 | PC.NURSE ---
ambulated with walker from bed to hallway outside room 382, and back to outside room 354, and back in room 355 to restroom and back in bed with 1 person standby to minimal assist. Sat at edge of bed for a few minutes approximately 15 mins.
[2025-06-21 05:59] LABS: Basophils # (Auto) 0.0 Thou/mm3 (0.0-0.2); Basophils % (Auto) 0 % (0-2.5); Eosinophils # (Auto) 0.1 Thou/mm3 (0.0-0.5); Eosinophils % (Auto) 2 % (0-10); Hematocrit 41.5 % (41.0-53.0); Hemoglobin 14.7 g/dL (13.5-16.0); Immature Granulocytes Auto 0.02 Thou/mm3 (0.00-0.00); Lymphocytes # (Auto) 1.1 Thou/mm3 (1.0-4.8); Lymphocytes % (Auto) 16 % (10-50); Mean Corpuscular HGB Conc 35.4 g/dl (31.0-37.0); Mean Corpuscular Hemoglobin 30.5 pg (25.0-35.0); Mean Corpuscular Volume 86 fL (80-100); Monocytes # (Auto) 0.8 Thou/mm3 (0.0-0.8); Monocytes % (Auto) 11 % (0-12); Neutrophils # (Auto) 5.1 Thou/mm3 (1.8-7.7); Neutrophils % (Auto) 70 % (37-80); Nucleated Red Blood Cell # 0.00 Thou/mm3 (0.00-0.00); Nucleated Red Blood Cell % 0 /100 WBC (0); Platelet Count 142 Thou/mm3 (140-440); RDW Standard Deviation 41.9 fL (35.1-43.9); Red Blood Count 4.82 Miln/mm3 (4.50-5.90); White Blood Count 7.3 Thou/mm3 (3.8-10.6)
[2025-06-21 06:30] LABS: Alanine Aminotransferase 16 U/L (10-49); Albumin, Serum 3.7 gm/dL (3.4-4.8); Albumin/Globulin Ratio 1.3 (1.2-2.2); Alkaline Phosphatase 74 U/L (46-116); Anion Gap 10 (7-16); Aspartate Amino Transferase 40 U/L (0-34); BUN/Creatinine Ratio 15 Ratio (12-20); Bilirubin,Total 0.5 mg/dL (0.3-1.2); Blood Urea Nitrogen 20 mg/dL (9-23); Calcium 8.3 mg/dL (8.3-10.6); Calcium (Corrected) 8.5 mg/dL (8.5-10.1); Carbon Dioxide 27.3 mMol/L (20.0-31.0); Chloride 103 mMol/L (98-107); Creatinine (Component) 1.3 mg/dL (0.6-1.3); Estimated Creatinine Clearance 71.4 mL/min (>60); Globulin 2.9 gm/dL (2.3-3.5); Glucose 159 mg/dL (74-106); Osmolality,Calculated 285 (275-295); Potassium 4.0 mMol/L (3.4-5.1); Sodium 140 mMol/L (136-145); Total Protein 6.6 gm/dL (5.7-8.2); eGFR 59 See Note
[2025-06-21] MEDS: cefTRIAXone/D5w 1gm IV premix 1 GM/50 ML BAG IV (07:59)
[2025-06-21] MEDS: HEPARIN SOD INJ 5000 UNIT/ML VIAL SC ×2 (07:59→20:43)
[2025-06-21] MEDS: ASPIRIN EC 81 MG TABEC PO (08:00)
[2025-06-21] MEDS: TAMSULOSIN HCL 0.4 MG CAPSULE PO (08:00)
[2025-06-21] MEDS: HYDROcodone/APAP 5/325 TABLET 1 TAB PO (08:00)
[2025-06-21] MEDS: PIPER/TAZO 3.375 GM PREMIX 3.375 GM/50 ML BAG IV (10:13)
--- NOTE | 2025-06-21 12:26 | ESPR_ITS ---
<Statement entered by Flaco Oseguera MD - 06/22/25 12:44> I have discussed and was present for the essential components of the history, physical examination, diagnosis, and treatment plan with the resident. I agree with the patient's care as documented by the resident and amended herein by me. Flaco Oseguera MD FACP. <Statement entered by Mary Anne Lamb MD - 06/21/25 14:00> I discussed with and supervised the customer success intern physician who took care of this patient. I personally saw and examined the patient and discussed the assessment and plan with the entire medicine team, including my attending , I agree with the assessment and plan as documented below Mary Anne Lamb M.D. PGY-3 Disclaimer: Despite multiple revisions, due to the dictation software being used, the document bellow may not be free of grammatical errors including phonetic/typographic errors. However, this does not deter from our commitment to providing health care in the patient's best interest in mind. Documentation for date of: 06/21/25 Subjective Subjective Interval history: No acute events overnight. Patient is alert and denies fever, chills, nausea, vomiting, chest pain, palpitations and dysuria. He notes his upper extremity bone pain has lessened. He denies any vision changes or headache and has had no stroke like symptoms. Exam Vital Signs Temp Pulse Resp BP Pulse Ox O2 Del Method 97.4 F 70 17 145/72 H 96 Room Air 06/21/25 12:00 06/21/25 12:00 06/21/25 12:00 06/21/25 12:00 06/21/25 12:00 06/21/25 12:00 Narrative Exam General: Patient alert, oriented, in no acute distress. HEENT: Scalp deformity, atraumatic. PERRLA, EOMI. Neck: Supple, trachea midline, no thyromegaly or lymphadenopathy. Cardiac: Regular rate and rhythm, normal S1/S2, no murmurs, rubs, or gallops. Peripheral pulses 2+ and symmetric. No peripheral edema. Lungs: Normal effort, clear to auscultation bilaterally, no wheezes, rales, or rhonchi. Abdomen: Soft, non-tender, non-distended. Normoactive bowel sounds. No hepatosplenomegaly, no rebound/guarding. Sup Extremities: Upper Extremity/Shoulder ROM limited by pain, improved. Bilateral lower extremities with chronic venous stasis changes, including hyperpigmented discoloration and dry, scaly skin on LE. No open ulcers or drainage noted. Skin: Warm, dry, intact. Neuro: Alert and oriented ?3. Speech fluent. Cranial nerves II?XII grossly intact. Motor 5/5 throughout, sensation intact. Objective Labs 06/21/25 04:48 06/21/25 04:48 Labs: Laboratory Results - last 24 hr 06/21/25 04:48 WBC 7.3 RBC 4.82 Hgb 14.7 D Hct 41.5 MCV 86 MCH 30.5 MCHC 35.4 RDW Std Deviation 41.9 Plt Count 142 D Neut % (Auto) 70 Lymph % (Auto) 16 [place] % (Auto) 11 Eos % (Auto) 2 Baso % (Auto) 0 Neut # (Auto) 5.1 Lymph # (Auto) 1.1 [place] # (Auto) 0.8 Eos # (Auto) 0.1 Baso # (Auto) 0.0 Immature Gran # (Auto) 0.02 H Absolute Nucleated RBC 0.00 Immature Gran % 0 Nucleated RBC % 0 Sodium 140 Potassium 4.0 Chloride 103 Carbon Dioxide 27.3 Anion Gap 10 BUN 20 Creatinine 1.3 Estim Creat Clear Calc 71.4 eGFR 59 L BUN/Creatinine Ratio 15 Glucose 159 H D Calculated Osmolality 285 Calcium 8.3 Corrected Calcium 8.5 Total Bilirubin 0.5 AST 40 H ALT 16 Alkaline Phosphatase 74 D Total Protein 6.6 Albumin 3.7 D Globulin 2.9 Albumin/Globulin Ratio 1.3 Quality Measures Quality Measures VTE prophylaxis Advance care planning discussed with:: patient Assessment & Plan Assessment Current Active Medications: Generic Name Dose Route Start Last Admin Trade Name Freq PRN Reason Stop Dose Admin Acetaminophen 650 mg 06/19/25 20:42 Acetaminophen 325 Mg Tablet PO 07/19/25 20:41 Q6H PRN Fever >100.4 Acetaminophen 650 mg 06/19/25 20:42 Acetaminophen 325 Mg Tablet PO 07/19/25 20:41 Q6H PRN PAIN SCALE 1-3 (mild Hydrocodone Bitart/Acetaminophen 1 tab 06/20/25 12:06 06/21/25 08:00 Hydrocodone/Apap 5/325 Tablet PO 06/25/25 12:05 1 tab Q4HR PRN Administration Pain 4-6 Aspirin 81 mg 06/20/25 09:00 06/21/25 08:00 Aspirin Ec 81 Mg Tabec PO 07/20/25 08:59 81 mg QDAY EVGENY Administration Atorvastatin Calcium 80 mg 06/20/25 21:00 06/20/25 21:07 Atorvastatin Calcium 20 Mg Tablet PO 07/20/25 20:59 80 mg HS EVGENY Administration Carvedilol 12.5 mg 06/20/25 09:00 06/21/25 08:00 Carvedilol 12.5 Mg Tablet PO 07/20/25 08:59 12.5 mg BID EVGENY Administration Heparin Sodium (Porcine) 5,000 unit 06/20/25 09:00 06/21/25 07:59 Heparin Sod Inj 5000 Unit/Ml Vial SC 07/04/25 08:59 5,000 unit BID EVGENY Administration Meropenem 1,000 mg/ Sodium 50 mls @ 100 mls/hr 06/21/25 14:00 Chloride IV 06/28/25 13:59 Q8HR EVGENY Ondansetron HCl 4 mg 06/19/25 20:42 Ondansetron Inj 2 Mg/Ml Inj 2 Ml IVP 07/19/25 20:41 Q6H PRN NAUSEA OR VOMITING Protocol Sennosides 1 tab 06/19/25 20:42 06/21/25 04:38 Senna Tablet PO 07/19/25 20:41 1 tab QDAY PRN Administration constipation Protocol Tamsulosin HCl 0.4 mg 06/20/25 09:00 06/21/25 08:00 Tamsulosin Hcl 0.4 Mg Capsule PO 07/20/25 08:59 0.4 mg DAILY EVGENY Administration Trazodone HCl 50 mg 06/20/25 05:22 Trazodone Hcl 50 Mg Tablet PO 07/20/25 05:21 HS PRN Sleep Plan 75-year-old male with PMHx of hypertension, stroke, left eye blindness, BPH, bilateral osteoarthritis presented with weakness, lethargy and bilateral flank pain admitted for evaluation and management of pyelonpehritis and CVA ruleout. #Sepsis 2/2 to Pyelonephritis, resolving Sepsis criteria met due to elevated WBC, Lactate and signs of end organ damage with Cr and Troponin on admission. Sepsis is now resolved with normal WBC, downtrending Lactate, Cr and Troponin. Given symptoms of bilateral flank pain, urinary urgency, frequency and CT findings of perinephric stranding/thickening of bladder, patient has pyelonephritis which is improving due to improved symptoms and normal WBC. Urine cultures were positive for Ecoli ESBL bacteria and blood cultures showed gram negative rods with no growth in the last 24 hours. Patient will be treated with Meropenem given carbapenems produce best outcomes in terms of survival and bacteriologic clearance for ESBL bacteria. Plan - Start IV Meropenem - Monitor for improvement #HODAN 2/2 to Sepsis, resolved Patient had HODAN due to elevated Cr 2.5 now 1.2 likely due to sepsis. Given that the Cr is downtrending, his HODAN is improving. Plan - Monitor volume status - Continue to monitor renal function (daily BMP) - Monitor for signs of recurrent infection or sepsis #CVA ruleout, resolved Patient was admitted for evaluation of stroke NIHS score is 4. CT head shows no hemorrhage midline shift or mass and CT angiography of head shows no occlusion. He was started on aspirin and atorvastatin. MRI was negative for acute hemorrhage, mass effect or midline shift. No acute infarct. Chronic multi- infarct dementia pattern. - Continue Aspirin and Atorvastatin - Aspiration and seizure precautions - Neuro Checks q4h #Bilateral Musculoskeletal Pain #Hx of Osteoarthritis Patient is complaining of bilateral upper extremity and shoulder pain. Chest x-ray did not show any fractures or any concerning signs at this time it is believed to be musculoskeletal etiology. PT recommended home health. Plan - Follow up outpatient PCP - Order home health upon patient discharge # Hypertension. Patient takes Carvedilol 12.5 mg at home and benazepril 40mg po qday Plan - Continue home medication carvedilol. # BPH Patient takes Flomax 0.4 mg at home. Plan - Continue Flomax Hospital Management: Code status: Full DVT prophylaxis: Heparin Diet: Regular Lines: PIV Supplemental O2: none Disposition: Med -Tele Patient seen and assessed under supervision of attending physician Dr. Oseguera. Josep CAMPA, Internal Medicine
[2025-06-21] MEDS: MEROPENEM INJ 1,000 MG in SODIUM CHLORIDE 0.9% (Popper) 50 ML 100 MG IV ×2 (14:17→22:14)
--- NOTE | 2025-06-21 15:58 | PC.SS ---
rounding note: pending blood culture.
--- NOTE | 2025-06-21 19:15 | PC.NURSE ---
T=103.1- Cooling measures applied.
[2025-06-21] MEDS: ACETAMINOPHEN 325 MG TABLET 650 MG PO (19:26)
--- NOTE | 2025-06-21 20:15 | PD.RESEVENT ---
Documentation for date of: 06/21/25 Event Note Event Note: Rapid response called at 2007 for sepsis, T 102.2. Patient initially admitted for sepsis 2/2 pyelonephritis. Vitals: T 103.1, BP 176/75, HR 115, RR 26, spO2 92% RA. BG 159. AOx3. Ordered CBC, CMP, lactic acid. Given 1L LR bolus. Plan discussed with Dr. Almaraz and Dr. Bay. Chinyere Olvera MD PGY1
[2025-06-21] MEDS: RINGERS LACTATED 500 ML 500 ML 999 ML IV (20:26)
[2025-06-21 20:30] LABS: Lactate (Lactic Acid) 1.3 mMol/L (0.4-2.0)
[2025-06-21] MEDS: ATORVASTATIN CALCIUM 20 MG TABLET 80 MG PO (20:37)
[2025-06-21 20:38] LABS: Basophils # (Auto) 0.0 Thou/mm3 (0.0-0.2); Basophils % (Auto) 0 % (0-2.5); Eosinophils # (Auto) 0.0 Thou/mm3 (0.0-0.5); Eosinophils % (Auto) 0 % (0-10); Hematocrit 40.0 % (41.0-53.0); Hemoglobin 14.0 g/dL (13.5-16.0); Immature Granulocytes Auto 0.05 Thou/mm3 (0.00-0.00); Lymphocytes # (Auto) 0.4 Thou/mm3 (1.0-4.8); Lymphocytes % (Auto) 4 % (10-50); Mean Corpuscular HGB Conc 35.0 g/dl (31.0-37.0); Mean Corpuscular Hemoglobin 29.7 pg (25.0-35.0); Mean Corpuscular Volume 85 fL (80-100); Monocytes # (Auto) 0.6 Thou/mm3 (0.0-0.8); Monocytes % (Auto) 5 % (0-12); Neutrophils # (Auto) 10.7 Thou/mm3 (1.8-7.7); Neutrophils % (Auto) 91 % (37-80); Nucleated Red Blood Cell # 0.00 Thou/mm3 (0.00-0.00); Nucleated Red Blood Cell % 0 /100 WBC (0); Platelet Count 122 Thou/mm3 (140-440); RDW Standard Deviation 41.1 fL (35.1-43.9); Red Blood Count 4.71 Miln/mm3 (4.50-5.90); White Blood Count 11.8 Thou/mm3 (3.8-10.6)
[2025-06-21 20:49] LABS: Alanine Aminotransferase 16 U/L (10-49); Albumin, Serum 3.6 gm/dL (3.4-4.8); Albumin/Globulin Ratio 1.3 (1.2-2.2); Alkaline Phosphatase 84 U/L (46-116); Anion Gap 10 (7-16); Aspartate Amino Transferase 33 U/L (0-34); BUN/Creatinine Ratio 14 Ratio (12-20); Bilirubin,Total 0.5 mg/dL (0.3-1.2); Blood Urea Nitrogen 18 mg/dL (9-23); Calcium 8.1 mg/dL (8.3-10.6); Calcium (Corrected) 8.4 mg/dL (8.5-10.1); Carbon Dioxide 25.1 mMol/L (20.0-31.0); Chloride 104 mMol/L (98-107); Creatinine (Component) 1.3 mg/dL (0.6-1.3); Estimated Creatinine Clearance 71.4 mL/min (>60); Globulin 2.7 gm/dL (2.3-3.5); Glucose 141 mg/dL (74-106); Osmolality,Calculated 281 (275-295); Potassium 3.7 mMol/L (3.4-5.1); Sodium 139 mMol/L (136-145); Total Protein 6.3 gm/dL (5.7-8.2); eGFR 59 See Note
--- NOTE | 2025-06-21 22:31 | PD.VPROG1 ---
Telemedicine visit statement This visit was conducted with the use of phone was obtained on 06/21/25 at 2231. Documentation for date of: 06/21/25 Subjective Subjective Interval history: Patient is in medsurg, no overnight events noted. Intermittently confused and disoriented. Feels generally weak but able to help transfer and use the bedside commode. Sepsis alert was called as he spikes the temp to 102 tonight. Labs were drawn, IVF was started. Virtual exam Vital Signs Temp Pulse Resp BP Pulse Ox O2 Del Method 100 F 111 H 26 H 157/89 H 92 L Room Air 06/21/25 20:31 06/21/25 20:37 06/21/25 20:08 06/21/25 20:37 06/21/25 20:08 06/21/25 20:05 Objective Labs 06/21/25 20:15 06/21/25 20:15 Labs: Laboratory Results - last 24 hr 06/21/25 06/21/25 04:48 20:15 WBC 7.3 11.8 H D RBC 4.82 4.71 Hgb 14.7 D 14.0 Hct 41.5 40.0 L MCV 86 85 MCH 30.5 29.7 MCHC 35.4 35.0 RDW Std Deviation 41.9 41.1 Plt Count 142 D 122 L Neut % (Auto) 70 91 H Lymph % (Auto) 16 4 L [place] % (Auto) 11 5 Eos % (Auto) 2 0 Baso % (Auto) 0 0 Neut # (Auto) 5.1 10.7 H Lymph # (Auto) 1.1 0.4 L [place] # (Auto) 0.8 0.6 Eos # (Auto) 0.1 0.0 Baso # (Auto) 0.0 0.0 Immature Gran # (Auto) 0.02 H 0.05 H Absolute Nucleated RBC 0.00 0.00 Immature Gran % 0 0 Nucleated RBC % 0 0 Sodium 140 139 Potassium 4.0 3.7 Chloride 103 104 Carbon Dioxide 27.3 25.1 Anion Gap 10 10 BUN 20 18 Creatinine 1.3 1.3 Estim Creat Clear Calc 71.4 71.4 eGFR 59 L 59 L BUN/Creatinine Ratio 15 14 Glucose 159 H D 141 H Calculated Osmolality 285 281 Lactic Acid 1.3 Calcium 8.3 8.1 L Corrected Calcium 8.5 8.4 L Total Bilirubin 0.5 0.5 AST 40 H 33 ALT 16 16 Alkaline Phosphatase 74 D 84 Total Protein 6.6 6.3 Albumin 3.7 D 3.6 Globulin 2.9 2.7 Albumin/Globulin Ratio 1.3 1.3 Assessment & Plan Problem List (1) Stroke-like symptom: Status: Resolved Assessment and plan: reassured that he did not have any acute infarction. continue with aggressive BP control and other vascular risk factors control (2) Sepsis: Status: Acute Assessment and plan: on IV antibiotics and IVf (3) UTI (urinary tract infection): Status: Acute Assessment and plan: continue with IV antibiotics and follow up with culture and sensitivity (4) Vascular dementia: Status: Chronic Assessment and plan: add ASA 81 mg daily in addition to vascular risk factors control MRI brain showed findings consistent with this.
[2025-06-22] VITALS (10 sets, daily range): BP systolic 118–158; BP diastolic 70–84; PULSE 60–95; RESP 16–94; TEMP 36.1–37.2; O2SAT 93–98
[2025-06-22] MEDS: MEROPENEM INJ 1,000 MG in SODIUM CHLORIDE 0.9% (Popper) 50 ML 100 MG IV ×3 (05:25→22:21)
[2025-06-22 05:48] LABS: Basophils # (Auto) 0.1 Thou/mm3 (0.0-0.2); Basophils % (Auto) 0 % (0-2.5); Eosinophils # (Auto) 0.1 Thou/mm3 (0.0-0.5); Eosinophils % (Auto) 0 % (0-10); Hematocrit 37.7 % (41.0-53.0); Hemoglobin 13.0 g/dL (13.5-16.0); Immature Granulocytes Auto 0.11 Thou/mm3 (0.00-0.00); Lymphocytes # (Auto) 1.5 Thou/mm3 (1.0-4.8); Lymphocytes % (Auto) 9 % (10-50); Mean Corpuscular HGB Conc 34.5 g/dl (31.0-37.0); Mean Corpuscular Hemoglobin 29.7 pg (25.0-35.0); Mean Corpuscular Volume 86 fL (80-100); Monocytes # (Auto) 1.1 Thou/mm3 (0.0-0.8); Monocytes % (Auto) 7 % (0-12); Neutrophils # (Auto) 14.3 Thou/mm3 (1.8-7.7); Neutrophils % (Auto) 84 % (37-80); Nucleated Red Blood Cell # 0.00 Thou/mm3 (0.00-0.00); Nucleated Red Blood Cell % 0 /100 WBC (0); Platelet Count 106 Thou/mm3 (140-440); RDW Standard Deviation 42.8 fL (35.1-43.9); Red Blood Count 4.37 Miln/mm3 (4.50-5.90); White Blood Count 17.1 Thou/mm3 (3.8-10.6)
[2025-06-22 06:21] LABS: Alanine Aminotransferase 14 U/L (10-49); Albumin, Serum 3.3 gm/dL (3.4-4.8); Albumin/Globulin Ratio 1.3 (1.2-2.2); Alkaline Phosphatase 80 U/L (46-116); Anion Gap 8 (7-16); Aspartate Amino Transferase 30 U/L (0-34); BUN/Creatinine Ratio 14 Ratio (12-20); Bilirubin,Total 0.4 mg/dL (0.3-1.2); Blood Urea Nitrogen 20 mg/dL (9-23); Calcium 7.9 mg/dL (8.3-10.6); Calcium (Corrected) 8.5 mg/dL (8.5-10.1); Carbon Dioxide 29.1 mMol/L (20.0-31.0); Chloride 104 mMol/L (98-107); Creatinine (Component) 1.4 mg/dL (0.6-1.3); Estimated Creatinine Clearance 66.3 mL/min (>60); Globulin 2.6 gm/dL (2.3-3.5); Glucose 111 mg/dL (74-106); Osmolality,Calculated 284 (275-295); Potassium 3.9 mMol/L (3.4-5.1); Sodium 141 mMol/L (136-145); Total Protein 5.9 gm/dL (5.7-8.2); eGFR 54 See Note
--- NOTE | 2025-06-22 07:28 | XR_ITS ---
EXAMINATION: AP chest single view TECHNIQUE: AP portable upright chest single view Date and time: June 22, 2025, 0738 hours, comparison June 19, 2025 INDICATIONS: Shortness of breath today FINDINGS: Normal heart size. No pneumonia or pulmonary edema. Moderate osteopenia IMPRESSION: No active disease
[2025-06-22] MEDS: RINGERS LACTATED 1000 ML 1,000 ML 999 ML IV (08:13)
[2025-06-22] MEDS: HEPARIN SOD INJ 5000 UNIT/ML VIAL SC ×2 (08:13→22:27)
[2025-06-22] MEDS: ASPIRIN EC 81 MG TABEC PO (08:14)
[2025-06-22] MEDS: TAMSULOSIN HCL 0.4 MG CAPSULE PO (08:14)
[2025-06-22] MEDS: HYDROcodone/APAP 5/325 TABLET 1 TAB PO (08:26)
--- NOTE | 2025-06-22 10:26 | ESPR_ITS ---
<Statement entered by Flaco Oseguera MD - 06/22/25 14:37> I have discussed and was present for the essential components of the history, physical examination, diagnosis, and treatment plan with the resident. I agree with the patient's care as documented by the resident and amended herein by me. Flaco Oseguera MD FACP. Documentation for date of: 06/22/25 Subjective Subjective Interval history: Patient seen and examined at bedside. Overnight rapid response was called due to fever, septic alert was called, repeat labs revealed elevated leukocytosis up from 11-17.1, renal function slightly worsened creatinine is 1.4, patient continued to be on meropenem, repeat blood culture were ordered, previous blood culture was positive for GNR, urine cultures positive for ESBL, plan is to continue with meropenem, we will consider repeat CT abdomen/pelvis if patient continues spiking fever, but for now continue current management, IV hydration, antibiotics, follow-up with the cultures. Exam Vital Signs Temp Pulse Resp BP Pulse Ox O2 Del Method 97.1 F 76 17 158/70 H 96 Room Air 06/22/25 08:00 06/22/25 08:14 06/22/25 08:00 06/22/25 08:14 06/22/25 08:00 06/22/25 08:00 Narrative Exam General: Patient alert, oriented, in no acute distress. HEENT: Scalp deformity, atraumatic. PERRLA, EOMI. Neck: Supple, trachea midline, no thyromegaly or lymphadenopathy. Cardiac: Regular rate and rhythm, normal S1/S2, no murmurs, rubs, or gallops. Peripheral pulses 2+ and symmetric. No peripheral edema. Lungs: Normal effort, clear to auscultation bilaterally, no wheezes, rales, or rhonchi. Abdomen: Soft, non-tender, non-distended. Normoactive bowel sounds. No hepatosplenomegaly, no rebound/guarding. Sup Extremities: Upper Extremity/Shoulder ROM limited by pain, improved. Bilateral lower extremities with chronic venous stasis changes, including hyperpigmented discoloration and dry, scaly skin on LE. No open ulcers or drainage noted. Skin: Warm, dry, intact. Neuro: Alert and oriented ?3. Speech fluent. Cranial nerves II?XII grossly intact. Motor 5/5 throughout, sensation intact. Objective Labs 06/22/25 05:02 06/22/25 05:02 Labs: Laboratory Results - last 24 hr 06/21/25 06/22/25 20:15 05:02 WBC 11.8 H D 17.1 H D RBC 4.71 4.37 L Hgb 14.0 13.0 L Hct 40.0 L 37.7 L MCV 85 86 MCH 29.7 29.7 MCHC 35.0 34.5 RDW Std Deviation 41.1 42.8 Plt Count 122 L 106 L Neut % (Auto) 91 H 84 H Lymph % (Auto) 4 L 9 L [place] % (Auto) 5 7 Eos % (Auto) 0 0 Baso % (Auto) 0 0 Neut # (Auto) 10.7 H 14.3 H Lymph # (Auto) 0.4 L 1.5 [place] # (Auto) 0.6 1.1 H Eos # (Auto) 0.0 0.1 Baso # (Auto) 0.0 0.1 Immature Gran # (Auto) 0.05 H 0.11 H Absolute Nucleated RBC 0.00 0.00 Immature Gran % 0 1 H Nucleated RBC % 0 0 Sodium 139 141 Potassium 3.7 3.9 Chloride 104 104 Carbon Dioxide 25.1 29.1 Anion Gap 10 8 BUN 18 20 Creatinine 1.3 1.4 H Estim Creat Clear Calc 71.4 66.3 eGFR 59 L 54 L BUN/Creatinine Ratio 14 14 Glucose 141 H 111 H Calculated Osmolality 281 284 Lactic Acid 1.3 Calcium 8.1 L 7.9 L Corrected Calcium 8.4 L 8.5 Total Bilirubin 0.5 0.4 AST 33 30 ALT 16 14 Alkaline Phosphatase 84 80 Total Protein 6.3 5.9 Albumin 3.6 3.3 L Globulin 2.7 2.6 Albumin/Globulin Ratio 1.3 1.3 Quality Measures Quality Measures VTE prophylaxis Advance care planning discussed with:: patient Assessment & Plan Assessment Current Active Medications: Generic Name Dose Route Start Last Admin Trade Name Freq PRN Reason Stop Dose Admin Acetaminophen 650 mg 06/19/25 20:42 06/21/25 19:26 Acetaminophen 325 Mg Tablet PO 07/19/25 20:41 650 mg Q6H PRN Administration Fever >100.4 Acetaminophen 650 mg 06/19/25 20:42 Acetaminophen 325 Mg Tablet PO 07/19/25 20:41 Q6H PRN PAIN SCALE 1-3 (mild Hydrocodone Bitart/Acetaminophen 1 tab 06/20/25 12:06 06/22/25 08:26 Hydrocodone/Apap 5/325 Tablet PO 06/25/25 12:05 1 tab Q4HR PRN Administration Pain 4-6 Aspirin 81 mg 06/20/25 09:00 06/22/25 08:14 Aspirin Ec 81 Mg Tabec PO 07/20/25 08:59 81 mg QDAY EVGENY Administration Atorvastatin Calcium 80 mg 06/20/25 21:00 06/21/25 20:37 Atorvastatin Calcium 20 Mg Tablet PO 07/20/25 20:59 80 mg HS EVGENY Administration Carvedilol 12.5 mg 06/20/25 09:00 06/22/25 08:14 Carvedilol 12.5 Mg Tablet PO 07/20/25 08:59 12.5 mg BID EVGENY Administration Heparin Sodium (Porcine) 5,000 unit 06/20/25 09:00 06/22/25 08:13 Heparin Sod Inj 5000 Unit/Ml Vial SC 07/04/25 08:59 5,000 unit BID EVGENY Administration Meropenem 1,000 mg/ Sodium 50 mls @ 100 mls/hr 06/21/25 14:00 06/22/25 05:25 Chloride IV 06/28/25 13:59 100 mls/hr Q8HR EVGENY Administration Ondansetron HCl 4 mg 06/19/25 20:42 Ondansetron Inj 2 Mg/Ml Inj 2 Ml IVP 07/19/25 20:41 Q6H PRN NAUSEA OR VOMITING Protocol Sennosides 1 tab 06/19/25 20:42 06/21/25 04:38 Senna Tablet PO 07/19/25 20:41 1 tab QDAY PRN Administration constipation Protocol Tamsulosin HCl 0.4 mg 06/20/25 09:00 06/22/25 08:14 Tamsulosin Hcl 0.4 Mg Capsule PO 07/20/25 08:59 0.4 mg DAILY EVGENY Administration Trazodone HCl 50 mg 06/20/25 05:22 Trazodone Hcl 50 Mg Tablet PO 07/20/25 05:21 HS PRN Sleep Plan 75-year-old male with PMHx of hypertension, stroke, left eye blindness, BPH, bilateral osteoarthritis presented with weakness, lethargy and bilateral flank pain admitted for evaluation and management of pyelonpehritis and CVA ruleout. #Sepsis 2/2 to Pyelonephritis, #ESBL UTI Sepsis criteria met due to elevated WBC, Lactate and signs of end organ damage with Cr and Troponin on admission. Sepsis is now resolved with normal WBC, downtrending Lactate, Cr and Troponin. Given symptoms of bilateral flank pain, urinary urgency, frequency and CT findings of perinephric stranding/thickening of bladder, patient has pyelonephritis which is improving due to improved symptoms and normal WBC. Urine cultures were positive for Ecoli ESBL bacteria and blood cultures showed gram negative rods with no growth in the last 48 hours. Patient will be treated with Meropenem given carbapenems produce best outcomes in terms of survival and bacteriologic clearance for ESBL bacteria. Plan - IV Meropenem - repeat BC pending - Monitor for improvement - If continues spiking fever, we will repeat CT abdomen/pelvis #HODAN most likely prerenal most likely prerenal Plan - IVF - Monitor volume status - Continue to monitor renal function (daily BMP) - Monitor for signs of recurrent infection or sepsis #CVA ruleout, resolved Patient was admitted for evaluation of stroke NIHS score is 4. CT head shows no hemorrhage midline shift or mass and CT angiography of head shows no occlusion. He was started on aspirin and atorvastatin. MRI was negative for acute hemorrhage, mass effect or midline shift. No acute infarct. Chronic multi- infarct dementia pattern. - Continue Aspirin and Atorvastatin - Aspiration and seizure precautions - Neuro Checks q4h - Echo buble (-) #Bilateral Musculoskeletal Pain #Hx of Osteoarthritis Patient is complaining of bilateral upper extremity and shoulder pain. Chest x-ray did not show any fractures or any concerning signs at this time it is believed to be musculoskeletal etiology. PT recommended home health. Plan - Follow up outpatient PCP - Order home health upon patient discharge # Hypertension. Patient takes Carvedilol 12.5 mg at home and benazepril 40mg po qday Plan - Continue home medication carvedilol. # BPH Patient takes Flomax 0.4 mg at home. Plan - Continue Flomax Hospital Management: Code status: Full DVT prophylaxis: Heparin Diet: Regular Lines: PIV Supplemental O2: none Disposition: Med -Tele Patient care was discussed with attending physician Dr. Oumar Lamb MD PGY-3 I have carefully reviewed this document. Due to imperfections in the voice software, there could be grammatical errors including phonetic/typographic errors. This in no way compromises the medical care the patient is receiving
--- NOTE | 2025-06-22 15:00 | PC.SS ---
Rounding note: fever, 1 more day.
[2025-06-22] MEDS: ATORVASTATIN CALCIUM 20 MG TABLET 80 MG PO (22:21)
[2025-06-23] VITALS (8 sets, daily range): BP systolic 122–189; BP diastolic 82–96; PULSE 66–84; RESP 17–19; TEMP 36–37.2; O2SAT 92–97; BMI 34.7
[2025-06-23] MEDS: MEROPENEM INJ 1,000 MG in SODIUM CHLORIDE 0.9% (Popper) 50 ML 100 MG IV ×2 (05:21→15:00)
[2025-06-23 08:56] LABS: Basophils # (Auto) 0.0 Thou/mm3 (0.0-0.2); Basophils % (Auto) 0 % (0-2.5); Eosinophils # (Auto) 0.1 Thou/mm3 (0.0-0.5); Eosinophils % (Auto) 1 % (0-10); Hematocrit 39.6 % (41.0-53.0); Hemoglobin 13.7 g/dL (13.5-16.0); Immature Granulocytes Auto 0.06 Thou/mm3 (0.00-0.00); Lymphocytes # (Auto) 0.9 Thou/mm3 (1.0-4.8); Lymphocytes % (Auto) 6 % (10-50); Mean Corpuscular HGB Conc 34.6 g/dl (31.0-37.0); Mean Corpuscular Hemoglobin 30.2 pg (25.0-35.0); Mean Corpuscular Volume 87 fL (80-100); Monocytes # (Auto) 0.9 Thou/mm3 (0.0-0.8); Monocytes % (Auto) 6 % (0-12); Neutrophils # (Auto) 13.1 Thou/mm3 (1.8-7.7); Neutrophils % (Auto) 88 % (37-80); Nucleated Red Blood Cell # 0.00 Thou/mm3 (0.00-0.00); Nucleated Red Blood Cell % 0 /100 WBC (0); Platelet Count 152 Thou/mm3 (140-440); RDW Standard Deviation 43.0 fL (35.1-43.9); Red Blood Count 4.53 Miln/mm3 (4.50-5.90); White Blood Count 15.0 Thou/mm3 (3.8-10.6)
[2025-06-23 09:09] LABS: Alanine Aminotransferase 34 U/L (10-49); Albumin, Serum 3.7 gm/dL (3.4-4.8); Albumin/Globulin Ratio 1.3 (1.2-2.2); Alkaline Phosphatase 86 U/L (46-116); Anion Gap 8 (7-16); Aspartate Amino Transferase 56 U/L (0-34); BUN/Creatinine Ratio 13 Ratio (12-20); Bilirubin,Total 0.6 mg/dL (0.3-1.2); Blood Urea Nitrogen 15 mg/dL (9-23); Calcium 8.6 mg/dL (8.3-10.6); Calcium (Corrected) 8.8 mg/dL (8.5-10.1); Carbon Dioxide 29.5 mMol/L (20.0-31.0); Chloride 100 mMol/L (98-107); Creatinine (Component) 1.2 mg/dL (0.6-1.3); Estimated Creatinine Clearance 77.4 mL/min (>60); Globulin 2.9 gm/dL (2.3-3.5); Glucose 179 mg/dL (74-106); Osmolality,Calculated 278 (275-295); Potassium 4.3 mMol/L (3.4-5.1); Sodium 137 mMol/L (136-145); Total Protein 6.6 gm/dL (5.7-8.2); eGFR > 60 See Note
[2025-06-23] MEDS: HEPARIN SOD INJ 5000 UNIT/ML VIAL SC (09:42)
[2025-06-23] MEDS: ASPIRIN EC 81 MG TABEC PO (09:42)
[2025-06-23] MEDS: TAMSULOSIN HCL 0.4 MG CAPSULE PO (09:42)
--- NOTE | 2025-06-23 11:27 | PC.SS ---
Follow up note: On IV antibiotic. White count is increasing. Pt will return home upon dc.
--- NOTE | 2025-06-23 15:27 | ESDS_ITS ---
<Statement entered by Drake Chatman MD - 06/23/25 16:23> I have personally seen and examined the patient. I agree with the medical student's discharge summary as documented below. Drake Chatman DO PGY-2 Internal Medicine - [facility] Planned Discharge Date 06/23/25 DS: Providers Provider Date of admission: 06/19/25 20:42 Primary care physician: Ranjan Wolfe MD Admitting Provider: Flaco Oseguera MD Attending Provider on Admission: Bernardino Norman MD Consults: 06/19/25 12:04 Consult to Neurology / Tele-Neurology Routine Comment: Consulting Provider: [facility] 06/20/25 05:22 Referral Speech Therapy Stat Comment: 06/20/25 06:14 Consult to Neurology / Tele-Neurology Routine Comment: Consulting Provider: Nirav Cantu 06/20/25 08:00 Referral Physical Therapy Routine Comment: Physician Instructions: Attending Provider on DC: Adriel Olvera Discharging Provider: Adriel Olvera DS: Diagnosis Problem List Completed Was Problem List Reviewed/Reconciled?: Yes Hospital Course Hospital Course Hospital course: 75-year-old male with past medical history of hypertension, prior stroke with left eye blindness, benign prostatic hyperplasia, and bilateral osteoarthritis presented with two days of weakness, lethargy, and bilateral flank pain associated with increased urinary frequency and urgency. On arrival, he was afebrile and hemodynamically stable. Initial labs were notable for leukocytosis, elevated creatinine 2.5, decreased GFR 27, increased total bilirubin 1.6, increased AST 41, increased troponin 0.8, and increased procalcitonin 65.58. Urinalysis showed 3+ blood, and CT abdomen revealed cholelithiasis without cholecystitis, perinephric stranding, and bladder wall thickening consistent with cystitis. The patient met sepsis criteria with evidence of end-organ dysfunction (HODAN and elevated troponin). He was initially started on IV ceftriaxone and later transitioned to IV meropenem after urine cultures grew ESBL E. coli; blood cultures showed gram-negative rods with no growth in subsequent cultures. Kidney function improved (Cr 1.2, lactic acid down to 1.8), and his HODAN was deemed prerenal and resolved. Concurrently, the patient underwent a stroke evaluation for lethargy; CT head and CTA head/neck were negative for acute hemorrhage or large vessel occlusion, and MRI brain showed no acute infarct but chronic multifocal ischemic changes consistent with prior infarcts. He was started on aspirin and atorvastatin for secondary stroke prevention. During hospitalization, his hemodynamics remained stable, mentation improved, and infection parameters down-trended. At discharge, the patient was clinically stable, afebrile, tolerating oral intake, and ambulating at baseline. He will complete his antibiotic course with IV meropenem, continue his home medications including antihypertensive medication, and follow up with his primary care provider for ongoing management and reassessment of renal function and infection resolution. Patient is medically stable at baseline and is ready for discharge. Patient is discharged to home with following medications and recommendations: - Take Bactrim 1 tablet twice daily for 7 additional days to complete the course. - Continue all home medications; Coreg increased to 25 mg twice daily. - Schedule a follow-up with primary care provider in 1 week. - Repeat renal panel in 1 week. - Increase oral hydration as tolerated. - Return precautions: Seek care in the ED immediately if symptoms worsen (e.g., fever, worsening weakness, flank pain, or decreased urine output). Admission Diagnoses: #Sepsis 2/2 to Pyelonephritis, resolved #HODAN, likely Pre-Renal, resolved #CVA ruleout, resolved #Bilateral Musculoskeletal Pain #Hx of Osteoarthritis # Hypertension. # BPH Patient seen and assessed under supervision of attending physician Dr. Norman. [facility], Internal Medicine Status at Discharge Overall status at discharge: patient is back to baseline Time Spent with Patient Time attestation: Total time spent providing and/or coordinating discharge services: Time spent: Greater than 30 minutes Home Health Home Health Referral Orders: 06/23/25 10:49 Home Health Referral Routine Reason For Exam: Home PT Home-Bound The patient must either because of illness or injury, need the aid of supportive devices such as crutches, canes, wheelchairs, and walkers; the use of special transportation; or the assistance of another person in order to leave their place of residence; OR have a condition such that leaving his or her home is medically contraindicated. In addition, the patient also meets the following criteria: patient is normally unable to leave the home and leaving home requires considerable taxing effort. Addendum to Home Health Certification Practitioner's Certification: I certify that the patient has been under my care in the hospital and the care of attending physician (see below). We had a [id number] encounter on (see date below). My clinical findings indicate that the patient is home bound per the above criteria and the Home Health Services noted in these orders are medically necessary. The primary reason for the [id number] encounter is related to the fact that the patient requires home health services. Date Certifying Snrd-lb-Ovks Physician Encounter: 06/19/25 Physician's Name who will Assume Oversight for Services: Ranjan Wolfe Physician's Phone No.who will Assume Oversight for Service: SALES REPRESENTATIVE [employer] - Community Resources: Yes PT to Evaluate: Yes PT to evaluate and provide a treatmnet plan to increase patient's mobility and strength. Wound Care: No IV Therapy: No RN Safety Evaluation: Yes RN to evaluate and create a plan of care that will produce positive outcomes. Palliative Treatment: No Palliative treatment and evaluate the need for hospice. Home Health Aide - Personal Care: Yes Home Health Aide to assist with any ADL's. Exam Vital Signs Temp Pulse Resp BP Pulse Ox O2 Del Method 98.1 F 74 18 122/82 94 L Room Air 06/23/25 12:00 06/23/25 12:51 06/23/25 12:00 06/23/25 12:51 06/23/25 12:00 06/23/25 12:00 Narrative Exam General: Patient alert, oriented, in no acute distress. HEENT: Scalp deformity, atraumatic. PERRLA, EOMI. Neck: Supple, trachea midline, no thyromegaly or lymphadenopathy. Cardiac: Regular rate and rhythm, normal S1/S2, no murmurs, rubs, or gallops. Peripheral pulses 2+ and symmetric. No peripheral edema. Lungs: Normal effort, clear to auscultation bilaterally, no wheezes, rales, or rhonchi. Abdomen: Soft, non-tender, non-distended. Normoactive bowel sounds. No hepatosplenomegaly, no rebound/guarding. Sup Extremities: Upper Extremity/Shoulder ROM limited by pain, improved. Bilateral lower extremities with chronic venous stasis changes, including hyperpigmented discoloration and dry, scaly skin on LE. No open ulcers or drainage noted. Skin: Warm, dry, intact. Neuro: Alert and oriented ?3. Speech fluent. Cranial nerves II?XII grossly intact. Motor 5/5 throughout, sensation intact. Discharge Plan Plan Patient Disposition: Home w/HOME HEALTH Patient condition on transfer: Stable Care Plan Goals: Take Bactrim(antibiotic) 1 tab twice daily for additional 7 more days to compleat antibiotic course. Coreg was increased to 25 mg twice daily continue taking the rest of the home medications follow up with PCP in 1 week after discharge repeat renal panel in 1 week increase oral hydration return to ED anytime symptoms worsens Prescriptions/Referrals Prescriptions/Med Rec: New carvedilol [Coreg] 25 mg tablet 25 mg PO BID 30 Days Qty: 60 0RF Rx Instructions: must administer with a meal/food sulfamethoxazole-trimethoprim [Bactrim] 400-80 mg tablet 1 tab PO BID 7 Days Qty: 14 0RF Continued benazepril 40 mg tablet 40 mg PO DAILY trazodone 50 mg tablet 50 mg PO HS PRN (Reason: Sleep) tamsulosin 0.4 mg capsule 0.4 mg PO DAILY Discontinued cephalexin 500 mg tablet 500 mg PO BID carvedilol 12.5 mg tablet 12.5 mg PO BID Rx Instructions: with food Referrals: Ranjan Wolfe MD [Primary Care Provider, Family Practice] Patient/Caregiver Discharge Instructions Discharge Activity: as per physical therapy and activity as tolerated Education Materials: Infec ESBL, Acute Kidney Failure Dc Print Language: Arabic Stand Alone Forms: Mildred Award Info., Patient Portal Info Letter Discharge Order Discharge Orders: Discharge (Routine); Ordered 06/23/25 Ordered By: Drake Chatman Quality Discharge Quality Measures VTE prophylaxis Attestestation MD Attestation I reviewed labs, imaging, EKG, home medications and prior available records. Face to face evaluation was performed by me. I have personally examined the patient and discussed assessment and plan with the IM team. I reviewed the resident note and agree with the plan with exceptions as below. ESBL UTI Acute pyelonephritis Hypertensive urgency Urine culture showed ESBL E. coli Will discharge on p.o. Bactrim for 1 more week Continue benazepril and Coreg. Monitor BP as outpatient Time spent is 40 minutes. More than 50% of the time was spent on patient education and coordination of care.
--- NOTE | 2025-06-23 16:15 | PC.SS ---
SS met with pt and lewisrSvitlana who explained pt was followed by [facility] and they are requesting to continue with them.
--- NOTE | 2025-06-25 11:31 | PC.CC ---
[facility] accepted and booked, soc 06/26
== END 2025-06-23 16:56 | disposition home health service (06) | DRG 872 ==
LOC: SERX 20:24 → SERHOLD 21:16 → S3NX 06-20 05:45
PROVIDERS: Nurse Practitioner Family; Student in an Organized Health Care Education/Training Program; Admitting Provider Internal Medicine; Emergency Provider Family Medicine; PCP Family Medicine; Visit Provider Student in an Organized Health Care Education/Training Program
DX: A41.9 Sepsis, unspecified organism (principal); N17.9 Acute kidney failure, unspecified; N12 Tubulo-interstitial nephritis, not specified as acute or chronic; Z16.12 Extended spectrum beta lactamase (ESBL) resistance; R10.9 Unspecified abdominal pain; I10 Essential (primary) hypertension; R53.1 Weakness; N40.0 Benign prostatic hyperplasia without lower urinary tract symptoms; H54.62 Unqualified visual loss, left eye, normal vision right eye; K80.20 Calculus of gallbladder without cholecystitis without obstruction; F01.50 Vascular dementia, unspecified severity, without behavioral disturbance, psychotic disturbance, mood disturbance, and anxiety; G93.89 Other specified disorders of brain; Z85.038 Personal history of other malignant neoplasm of large intestine; Z79.82 Long term (current) use of aspirin
CPT/HCPCS: 36415; 70450; 70496; 70498; 70544; 71045; 74176; 80053; 80307; 81001; 83605; 83735; 84100; 84145; 84484; 85025; 85610; 85730; 87040; 87077; 87086; 87186; 87400; 87811; 92610; 93005; 93225; 93306; 96361; 96365; 96372; 97162; 99285; A4649; J0696; J1644; J2185; J2543; J7050; J7120; Q9967; A9270